=== PATIENT | male | born 1965 | race Caucasian/White ===

== ENCOUNTER 2025-03-17 23:44 | Inpatient (IN) | payer BC, SELFPAY ==
[2025-03-17 18:58] VITALS: BMI 33.6
[2025-03-17 19:00] VITALS: BP 133/72
--- NOTE | 2025-03-17 20:52 | ED.GENMED ---
History of Present Illness
<Maximo Lucas MD, Resident - Last Filed: 03/17/25 22:50>
General
Chief Complaint: Swelling
Source: patient
Time Seen by Provider: 03/17/25 20:26
History of Present Illness
History of Present Illness:
Patient is a 60-year-old male who presents to the emergency department with bilateral lower extremity swelling with shortness of breath. he has a past medical history of CKD stage IV, hyperlipidemia, type 2 diabetes mellitus, and hypertension.
He started to notice that he was short of breath approximately 2 months ago while walking on flat ground. He states that he would get short of breath walking approximately 200 m. During these episodes of exacerbation the patient would feel
fatigue and would get sweaty. He did not have any chest pain and he did not notice any irregular heartbeats. 1 month ago he started to notice that his lower extremities were beginning to swell. Unfortunately on Tuesday of this week. That the
patient became concerned and he called his durability engineer Dr. Edgar. Dr. Edgar recommended that the patient increase his 20 mg of Lasix to 40 mg. The patient was instructed that if his symptoms did not improve by the end of the weekend he should
come to the emergency department for further evaluation. Unfortunately, his leg swelling persisted and his shortness of breath did not improve prompting him to present to the emergency department for further evaluation.
Past History
<Maximo Lucas MD, Resident - Last Filed: 03/17/25 22:50>
Past History
ED Past Medical History: HTN, Hypercholesterolemia, NIDDM and Other (Recent stroke in July 2020)
ED Past Surgical History: None
Social History
Tobacco: Non-smoker
Alcohol: None
Drug: None
Personal:
Living: with family
Employment: Not employed
Family History
Family History: Other (Noncontributory)
Review of Systems
<Maximo Lucas MD, Resident - Last Filed: 03/17/25 22:50>
Review of Systems
Constitutional: Reports fatigue and other ( Sweats)
EENT: Reports no symptoms
Respiratory: Reports trouble breathing ( shortness of breath on mild activity)
ABD/GI: Reports no symptoms
: Reports no symptoms
Musculoskeletal: Reports edema ( 2+ to 3+ bilateral lower extremity edema)
Skin: Reports no symptoms
Neurological: Reports no symptoms
Endocrine: Reports no symptoms
Hematologic/Lymphatic: Reports no symptoms
Psychiatric: Reports no symptoms
Phy Exam
<Maximo Lucas MD, Resident - Last Filed: 03/17/25 22:50>
General Physical Exam
General Presentation: well appearing and no apparent distress
General age: appears stated age
General Skin: warm and dry
General Habitus: normal
General Mental: alert
General Hydration: appears well hydrated
Cardiovascular Exam
Cardiovascular Exam: regular rate/rhythm, no edema ( 2+ to 3+ bilateral lower extremity edema), no gallop, no JVD, no murmur and normal peripheral pulses
Pulmonary Exam
Pulmonary Exam: lungs clear, no respiratory distress, no rales, chest non tender, no crackles, no rhonchi, no stridor, no wheezing and no cough
Musculoskeletal Exam
Musculoskeletal Exam: full ROM
Skin Exam
Skin Exam: normal color and warm/dry
Psychiatric Exam
Psychiatric Exam: normal mood/affect
Scores
<Maximo Lucas MD, Resident - Last Filed: 03/17/25 22:50>
Heart Failure Risk
Heart Failure Risk Score: Yes
History of Stroke or TIA: No
History of intubation for respiratory distress: No
Heart rate on ED arrival >/= 110: No
SaO2 <90% on arrival on room air: No
HR >/=110 during 3min walk test (or too ill to perform test): No
ECG has acute ischemic changes: No
Urea >/=12mmol/L (BUN 33.6mg/dL): Yes
Serum CO2>/=35mmol/L: No
Troponin I or T elevated to CT Level (0.4mg/dL): No
NT-proBNP >/=5,000ng/L (5,000pg/ml): No
HF Risk Score: 1
Admission Status: MEDIUM RISK 5.1% Consider observation or discharge to home with homecare & f/u visit to PCP/Community Recreation Programmer, or SNF for treatment
Course
<Maximo Lucas MD, Resident - Last Filed: 03/17/25 22:50>
Orders/Labs/Results
Orders:
Orders
03/17/25 20:46
Electrocardiogram (*1) Urgent
Reason for Study: Shortness of Breath
EKG- Treatment ONCE
03/17/25 20:49
Cardiac Monitoring- Treatment ONCE
03/17/25 20:52
CR Chest - 2 Views Urgent
Comment:
Reason For Exam: Shortness of breath
03/17/25 21:17
Complete Blood Count/No Diff Urgent
Comprehensive Metabolic Panel Urgent
Free T4 Urgent
NT-proBNP Urgent
TSH Reflex To Free T4 Urgent
Troponin I Urgent
03/17/25 22:30
Furosemide [Lasix] 40 mg IV NOW STA
Nitroglycerin Ointment [Nitro-Bid] 1 inch TOPICAL NOW STA
Abnormal Lab Results
03/17/25
21:17
RBC 2.83 L 10^6/uL
(4.70-6.10)
Hgb 8.0 L g/dL
(13.0-18.0)
Hct 24.9 L %
(39.0-52.0)
MCHC 32.1 L g/dL
(33.0-37.0)
MPV 11.0 H fL
(7.4-10.4)
Chloride 110 H mmol/L
(98-107)
BUN 38 H mg/dl
(9-20)
Creatinine 3.1 H mg/dL
(0.7-1.3)
Glucose 127 H mg/dl
(70-99)
ALT 72 H U/L
(0-50)
TSH (Reflex) 5.54 H uIU/ml
(0.47-4.68)
03/17/25 21:17
03/17/25 21:17
Vital Signs
Initial and Last Documented VS:
Initial Vital Signs
Temp Pulse Resp BP Pulse Ox
97.9 F 75 20 133/72 93
03/17/25 19:00 03/17/25 19:00 03/17/25 19:00 03/17/25 19:00 03/17/25 19:00
Last Documented Vital Signs
Temp Pulse Resp BP Pulse Ox
97.9 F 68 17 162/79 92
03/17/25 19:00 03/17/25 22:15 03/17/25 22:15 03/17/25 22:00 03/17/25 22:15
[place];Mariano Diop, DO - Last Filed: 03/17/25 22:36>
Orders/Labs/Results
Orders:
Orders
03/17/25 20:46
Electrocardiogram (*1) Urgent
Reason for Study: Shortness of Breath
EKG- Treatment ONCE
03/17/25 20:49
Cardiac Monitoring- Treatment ONCE
03/17/25 20:52
CR Chest - 2 Views Urgent
Comment:
Reason For Exam: Shortness of breath
03/17/25 21:17
Complete Blood Count/No Diff Urgent
Comprehensive Metabolic Panel Urgent
Free T4 Urgent
NT-proBNP Urgent
TSH Reflex To Free T4 Urgent
Troponin I Urgent
03/17/25 22:30
Furosemide [Lasix] 40 mg IV NOW STA
Nitroglycerin Ointment [Nitro-Bid] 1 inch TOPICAL NOW STA
Abnormal Lab Results
03/17/25
21:17
RBC 2.83 L 10^6/uL
(4.70-6.10)
Hgb 8.0 L g/dL
(13.0-18.0)
Hct 24.9 L %
(39.0-52.0)
MCHC 32.1 L g/dL
(33.0-37.0)
MPV 11.0 H fL
(7.4-10.4)
Chloride 110 H mmol/L
(98-107)
BUN 38 H mg/dl
(9-20)
Creatinine 3.1 H mg/dL
(0.7-1.3)
Glucose 127 H mg/dl
(70-99)
ALT 72 H U/L
(0-50)
TSH (Reflex) 5.54 H uIU/ml
(0.47-4.68)
03/17/25 21:17
03/17/25 21:17
Vital Signs
Initial and Last Documented VS:
Initial Vital Signs
Temp Pulse Resp BP Pulse Ox
97.9 F 75 20 133/72 93
03/17/25 19:00 03/17/25 19:00 03/17/25 19:00 03/17/25 19:00 03/17/25 19:00
Last Documented Vital Signs
Temp Pulse Resp BP Pulse Ox
97.9 F 68 17 162/79 92
03/17/25 19:00 03/17/25 22:15 03/17/25 22:15 03/17/25 22:00 03/17/25 22:15
<Maximo Lucas MD, Resident - Last Filed: 03/17/25 22:50>
*Pulse Oximetry
SaO2: 93
Oxygen Mode of Delivery: Room air
Patient hypoxic: no
*Critical Care Note
Total Time (30-74mins, 75-104mins- exclusive of procedures): 60
<Maximo Lucas MD, Resident - Last Filed: 03/17/25 22:50>
Update Note
Update Note:
Problem List:
Bilateral lower extremity edema
shortness of breath
diaphoresis
CKD stage IV
Plan:
EKG ordered
CBC and CMP ordered
proBNP ordered
troponins ordered
TSH with reflex to T4
chest x-ray
Differential Diagnoses:
CHF exacerbation
Pulmonary edema secondary to CHF exacerbation
cardiac arrhythmia
pneumonia
pulmonary embolism
Radiology:
- chest x-ray ordered on 03/17/2025: Mild cardiomegaly. Cannot exclude tiny bilateral pleural effusions.
EKG: normal sinus rhythm, right bundle branch block, septal infarct, age undetermined
Labs:
patient is a hemoglobin of 8.0 likely secondary to CKD stage IV. based on lab work in the outpatient setting has been trending downwards over the past few months
BMP with an elevated creatinine of 3.1, BUN of 38, eGFR of 22.17
troponins within normal limits
proBNP 4770
TSH 5.54
Updates:
Patient presents with obvious signs of acute CHF exacerbation. He has bilateral pedal edema 2+ to 3+.
proBNP is 4770. patient given Nitropaste and 40 mg of IV Lasix
patient to be admitted for acute CHF exacerbation.
ED Attending Note
<Maximo Lucas MD, Resident - Last Filed: 03/17/25 22:50>
-
Portions of this chart may have been created with voice recognition software.� Occasional wrong word or��sound alike� substitutions may have occurred due to the inherent limitations of voice recognition software.
<Mariano Diop, DO - Last Filed: 03/17/25 22:36>
ED Attending Note
Patient seen and examined by attending physician: Yes
I performed a history and physical exam of patient and discussed management with resident, I reviewed resident's note and agree with documented findings and plan of care.: Yes
ED Attending Note:
I have reviewed and agree with history treatment plan by Maximo Lucas MD.
Note:
CHIEF COMPLAINT(S)
Swelling and difficulty breathing.
HISTORY OF PRESENT ILLNESS
The patient is a 60-year-old male presenting with swelling and difficulty breathing for several days. The patient reports that the swelling in his legs has been increasing over several days to weeks, with significant worsening in the last few days.
The patient denies any recent dietary changes. An X-ray was performed, showing signs of pulmonary edema, prompting concerns for congestive heart failure. The patient notes the swelling in his legs is more pronounced than usual, whereas 30 days
prior, there was no swelling at all.
ADDITIONAL HISTORY OBTAINED FROM SOURCES OTHER THAN THE PATIENT
Per the patients daughter, there have been no significant changes in diet or lifestyle recently that could explain the sudden exacerbation of symptoms.
REVIEW OF SYSTEMS
- Cardiovascular: Swelling in the legs.
- Respiratory: Difficulty breathing, signs of fluid in the lungs.
PHYSICAL EXAM
General: Alert, no acute distress.
Skin: Warm, dry.
Head: Normocephalic, atraumatic.
Neck: Supple, trachea midline.
Eye Ears, nose, mouth and throat: Oral mucosa moist.
Cardiovascular: Normal peripheral perfusion, No edema.
Respiratory: Respirations are non-labored.
Gastrointestinal: Abdomen nondistended
Back: Normal range of motion, Normal alignment.
Musculoskeletal: Normal ROM, normal strength. edema bilateral
Neurological: Alert and oriented to person, place, time, and situation, No focal neurological deficit observed.
Psychiatric: Cooperative, appropriate mood & affect.
PLAN
Arrange for the patient to see a diagnostic technician for further evaluation of suspected congestive heart failure.
DIFFERENTIAL DIAGNOSIS
The Differential Diagnosis includes, in no particular order and is not limited to:
1. Congestive Heart Failure
2. Pulmonary Edema
3. Deep Vein Thrombosis
4. Chronic Kidney Disease
5. Chronic Obstructive Pulmonary Disease
6. Acute Respiratory Distress Syndrome
7. Pulmonary Hypertension
8. Sleep Apnea
9. Hypoalbuminemia
10. Venous Insufficiency
CARE-UPDATE
03/17/25 - 22:33
The patient, a [id number]-old male, is experiencing an exacerbation of chronic obstructive lung disorder (CHO). The treatment plan includes the administration of a bronchodilator, application of lacerine paste, and a dosage of 40 milligrams of
LASI-P. The decision has been made to admit the patient to the hospitalists for further management and monitoring.
Disposition:
SUMMARY OF ENCOUNTER
The patient, a 60-year-old male, was seen in the emergency department presenting with swelling and difficulty breathing. Upon evaluation, it was determined that the patient is experiencing an exacerbation of congestive heart failure (CHF) and has
underlying chronic kidney disease. Due to the seriousness of his condition, admission to the hospital for appropriate treatment and management was deemed necessary.
DISPOSITION
Admit.
ASSESSMENT
Exacerbation of congestive heart failure with underlying chronic kidney disease.
PLAN
The patient will be admitted to the hospital for further management and treatment of his congestive heart failure exacerbation and monitoring of chronic kidney disease.
MEDICATION RECONCILIATION
Administered medications include a bronchodilator and furosemide (Lasix).
MEDICAL DECISION MAKING
-Chronic conditions affecting care: Congestive heart failure, chronic kidney disease.
-Complexity of Data Reviewed:
DDx list includes:
1. Congestive Heart Failure
2. Pulmonary Edema
3. Deep Vein Thrombosis
4. Chronic Kidney Disease
5. Chronic Obstructive Pulmonary Disease
6. Acute Respiratory Distress Syndrome
7. Pulmonary Hypertension
8. Sleep Apnea
9. Hypoalbuminemia
10. Venous Insufficiency.
Category 2
Clinical information was obtained from an independent historian: The patients daughter confirmed no significant diet or lifestyle changes preceding the exacerbation of symptoms.
Category 3
Discussion of management with other physician: Management and hospital admission were discussed with the hospitalist team for comprehensive treatment.
DIAGNOSIS
1. Congestive Heart Failure Exacerbation - ICD-10: I50.9
2. Chronic Kidney Disease - ICD-10: N18.9
3 Anemia
Discharge Plan
Departure
Patient Disposition: Admit
Date of Disposition: 03/17/25
Time of Disposition: 22:35
Admit to: Telemetry
Presentation/result/management discussed w/ accepting MD/DO: Hospitalist
Condition: Good
Discharge Problem:
Acute exacerbation of CHF (congestive heart failure), Anemia, CKD (chronic kidney disease)
Prescriptions:
No Action
multivitamin with folic acid [Tab-A-Jazz] 1 TABLET tablet
1 tab PO DAILY
Patient Comments:
UNKNOWN IF PT TOOK THIS MED THIS AM
atorvastatin 80 MG tablet
80 mg PO QPM Qty: 30 0RF
Rx Instructions:
NEW MED
aspirin 81 MG tablet,chewable
81 mg PO DAILY Qty: 1 0RF
insulin regular human [Novolin R FlexPen] 300 UNITS/3 ML insulin pen
6 units SC DAILY@1700 0RF
insulin regular human [Novolin R FlexPen] 300 UNITS/3 ML insulin pen
8 units SC DAILY@0730,1130 0RF
furosemide 20 MG tablet
20 mg PO DAILY
lisinopril 10 MG tablet
10 mg PO BID 0RF
insulin NPH isoph U-100 human [Humulin N NPH Insulin KwikPen] 300 UNITS/3 ML insulin pen
18 units SC BID@0800,1700 0RF
labetalol 200 MG tablet
300 mg PO BID Qty: 100 2RF
Referrals:
Forrest Kovacs MD [Family Provider, Family Practice]
Interventions
Interventions:
*Risk Screen - Suicide Last Done: 03/17/25 19:01
*General Assessment Last Done: 03/17/25 19:01
*Neglect/Abuse Screening Last Done: 03/17/25 21:19
*ED- Fall Risk Assessment Last Done: 03/17/25 21:19
ED- Cardiac Assessment Last Done: 03/17/25 21:19
ED- Pulmonary Assessment Last Done: 03/17/25 21:19
ED-Skin Assessment Last Done: 03/17/25 21:19
Discharge Date and Time
Print Language: POLISH
[2025-03-17 21:18] VITALS: BP 161/83
[2025-03-17 21:32] LABS: Hematocrit 24.9 % (39.0-52.0); Hemoglobin 8.0 g/dL (13.0-18.0); Mean Corp Hgb Conc. 32.1 g/dL (33.0-37.0); Mean Corpuscular Volume 88.0 fL (80.0-94.0); Platelet Count 168 10^3/uL (130-400); Red Cell Dist. Width 12.9 % (11.5-14.5)
[2025-03-17 22:00] VITALS: BP 162/79
[2025-03-17 22:02] LABS: ALT (SGPT) 72 U/L (0-50); AST (SGOT) 30 U/L (17-59); Albumin 4.0 g/dl (3.5-5.0); Alkaline Phosphatase 104 U/L (38-126); Blood Urea Nitrogen 38 mg/dl (9-20); Calcium 8.6 mg/dl (8.4-10.2); Carbon Dioxide 26 mmol/L (22-30); Chloride 110 mmol/L (98-107); Estimated Creatinine Clearance 29 ml/min; Glucose 127 mg/dl (70-99); Potassium 5.1 mmol/L (3.5-5.1); Sodium 143 mmol/L (135-145); Total Protein 6.3 g/dl (6.3-8.2); eGFR 22.17
[2025-03-17 22:07] LABS: Troponin I < 0.012 ng/ml
[2025-03-17] MEDS: LASIX 40 MG IV (22:35)
[2025-03-17] MEDS: NITRO-BID 1 INCH TOPICAL (22:36)
[2025-03-17 22:42] VITALS: BP 153/74
--- NOTE | 2025-03-17 22:52 | HPS.HSE ---
Addendum entered and electronically signed by Benjie Eugene DO 03/18/25 00:12:
Patient seen and examined independently. Agree with findings and plan as set forth by CECILIA Wu.
Patient is a 60y M with PMH significant for hypertension, DM-II and CKD who presents to ED complaining of progressive LE swelling and dyspnea with exertion over the past several months / 1 year - much worse in the past 2 months. Patient states
that he spoke with his [employer] Operator and increased his Lasix dosing for the past 3-4 days. He did not appreciate any change in urination, edema or improvement in dyspnea. Patient presented to [facility] ED for further evaluation and treatment.
No prior history of CAD, CHF, etc. Prior suspected CVA s/p tPA. Developed contrast-induced nephropathy in 2021 requiring temporary HD at that time.
Ass:
Edema / Anasarca
CKD IV
Acute on Chronic Normocytic Anemia
Multidrug Resistant Hypertension
ASCVD / Prior CVA
DM-II with Nephropathy / Retinopathy
Obesity due to excess calories
Plan:
Admit for further evaluation and treatment.
IV Lasix and follow for adequate diuresis.
Check Echo - Cardiology consult if any significant abnormality.
Nephrology consult for volume management / CKD.
Check iron studies / anemia work-up.
Hold lisinopril acutely - continue other antihypertensive medications.
Continue basal : bolus insulin and cover with SSI if needed.
Original Note:
Family Physician
-
Family Physician: Forrest Kovacs
Chief Complaint
-
Shortness of breath, orthopnea, PERRY
History of Present Illness
60-year-old male complaining of bilateral lower extremity swelling with shortness of breath that he noticed approximately 1 year ago however has gotten worse over the past 2 months with minimal activity. he reports he will get short of breath while
walking approximately 200 m and would feel fatigued and diaphoretic however did not notice any chest pain or palpitations. He reports 1 month ago he developed swelling in his bilateral lower legs was seen by nephro his Lasix was increased from 20
mg to 40 mg. His symptoms did not improve over the weekend he was advised to come to ER for evaluation. He denies fever, chills, chest pain, palpitations, cough, abdominal pain, nausea, vomiting, diarrhea, urinary symptoms. He has past medical
history of CKD stage IV, diabetic nephropathy, contrast nephropathy requiring temporary dialysis July 2021, hypertension multidrug-resistant, DM 2 with diabetic nephropathy/diabetic neuropathy, HLD, TIA symptoms right-sided weakness/aphasia did
receive tPA July 2020 with negative MRIs, class I obesity.
Medical History
Past Medical History
Past Medical History: Reports Other
Additional Past Medical History:
CKD stage IV
diabetic nephropathy
contrast nephropathy requiring temporary dialysis July 2021
hypertension multidrug-resistant
DM 2 with diabetic nephropathy/diabetic neuropathy
HLD
TIA symptoms right-sided weakness/aphasia did receive tPA July 2020 with negative MRIs thought to be hypertensive encephalopathy or migraine aura
Class I obesity
Past Surgical History: Reports Other
Additional Past Surgical History:
[place] teeth extraction
Social History
Tobacco: Non-smoker
Alcohol: Occasional (Drinks 2 beers on the weekend)
Living: With Family
Employment: Retired
Family History
Family History: Not pertinent
Allergies / Home Medications
Allergies reflects when Allergies were last updated in [facility].
Home Medications with original date entered in [facility]
Allergy/Medication List:
Allergies
Allergy/AdvReac Type Severity Reaction Status Date / Time
Iodinated Contrast Media Allergy Unknown Verified 03/17/25 19:01
Home Medications
multivitamin with folic acid 400 mcg tablet (Tab-A-Jazz) 1 tab PO DAILY Supplement 06/18/21
aspirin 81 mg chewable tablet 81 mg PO DAILY #1 tab 06/21/21
atorvastatin 80 mg tablet 80 mg PO QPM #30 tabs 06/21/21
furosemide 20 mg tablet 20 mg PO DAILY Fluid retention/Swelling 11/13/21
insulin NPH isoph U-100 human 100 unit/mL (3 mL) subcutaneous pen (Humulin N NPH U-100 Insulin KwikPen) 18 units SC BID@0800,1700 11/16/21
labetalol 200 mg tablet 300 mg (1.5 x 200 mg) PO BID #100 tabs 11/16/21
lisinopril 10 mg tablet 10 mg PO BID 11/16/21
Lantus Solostar U-100 Insulin 20 units SC HS 03/17/25
Skyrizi 150 mg SC DIRECTED 03/17/25
insulin regular human 100 unit/mL (3 mL) subcutaneous pen (Novolin R FlexPen) 6 units SC DAILY@1200 03/17/25
insulin regular human 100 unit/mL (3 mL) subcutaneous pen (Novolin R FlexPen) 12 units SC DAILY@0730,2100 03/17/25
minoxidil 2.5 mg tablet 2.5 mg PO BID 03/17/25
sodium bicarbonate 650 mg PO BID 03/17/25
Review of Systems
-
History Source: Patient and Family (Daughters at bedside)
A 12 point ROS was completed and negative except as noted: Yes
Constitutional: Reports Fatigue; Denies Chills
EENT: Denies Sore Throat or Runny Nose
Respiratory: Reports Trouble Breathing and Other (PERRY, orthopnea); Denies Cough
Cardiac: Denies Chest Pain, Diaphoresis, Palpitations or Syncope
Abdomen/GI: Denies Abdominal Pain, Nausea, Vomiting, Diarrhea, Constipated, Bloody Stools or Black Stools
: Denies Dysuria, Frequency, Flank Pain, Incontinence, Difficulty Voiding or Urgency
Musculoskeletal: Reports Edema (+2 edema above knees); Denies Joint Pain
Skin: Denies Itching or Rash
Neurological: Denies Dizzy or Headache
Endocrine: Reports No Symptoms
Hematologic/Lymphatic: Reports No Symptoms
Psych: Reports Calm
Physical Exam
Vital Signs
Vital Signs
Temp Pulse Resp BP Pulse Ox
97.9 F 70 14 153/74 96
03/17/25 19:00 03/17/25 22:42 03/17/25 22:42 03/17/25 22:42 03/17/25 22:42
Physical Exam
General: Comfortable, Conversant and Obese; No Pain, Fever or Chills
HEENT: NormoCephalic, Anicteric, Moist mucous membranes, PERRLA, [place] Conjunctivae and No Ptosis
Respiratory: Clear; No Wheezes, Rales or Rhonchi
Cardiac: S1/S2, Regular Rhythm and Peripheral Edema (+2 lower legs to just above knees); No Murmur, Rub or Gallop
Breast: Deferred by me
GI: Soft, Non Tender, Non Distended, Normal Bowel Sounds and No Hepatosplenomegaly
Rectal: Deferred by Provider
Genito-urinary: Deferred by me
Musculoskeletal: No Clubbing, No Cyanosis, Edema, Left Lower Extremity (+2 lower leg to just above knees) and Edema, Right Lower Extremity (+2 lower leg to just above knees); No Edema, Left Upper Extremity or Edema, Right Upper Extremity
Skin: Warm and Dry; No Rash
Neuro: AO x 3, No Motor Deficits, Nonfocal/grossly intact, Cranial Nerves Intact and No Sensory Deficits; No Slurred Speech, Facial Droop, Tremors or Sedated
Psych: Calm
Laboratory Results
-
03/17/25 21:17
03/17/25 21:17
Laboratory Results
Total Bilirubin 0.3 mg/dl (0.2-1.3) 03/17/25 21:17
AST 30 U/L (17-59) 03/17/25 21:17
ALT 72 U/L (0-50) H 03/17/25 21:17
Alkaline Phosphatase 104 U/L (38-126) 03/17/25 21:17
Troponin I < 0.012 ng/ml 09/07/25 21:17
Data Reviewed
-
Diagnostic Radiology: Report Reviewed by me
Lab Data: Labs Reviewed by me
Impression/Plan
-
Impression/plan:
Admit to telemetry
#Acute CHF
BNP 4770
-I/O, daily weight
-Check 2D echo
-Consult CBC cardiology
-IV Lasix 40 mg daily
CXR: Mild cardiomegaly cannot exclude tiny bilateral pleural effusions
2D echo 07/21/2020: EF 55%, normal LVS LVSF, normal RVSF
#Acute on chronic anemia�normocytic
Hgb 8 was 10.6 in November 2021 prior baseline 12.2
Check iron panel, B12, folate
#CKD stage IV
#Proteinuria due to diabetic nephropathy
#History of contrast nephropathy required temporary dialysis July 2021 (peak creat 7.17 July 2021)
Creatinine 3.1 creat reports recently 2.8�2.9 but was 3 as of January with GFR of 21 per patient
- Continue sodium bicarb 650 mg twice daily
- Hold lisinopril 10 mg twice daily
#HTN multidrug resistant
BP 162/78
-Continue labetalol 300 mg twice daily
#CVA per patient had symptoms of right-sided weakness and aphasia was status post tPA July 2020-thought to be hypertensive encephalopathy or migraine aura
#July 2020 presented with right-sided weakness and aphasia received alteplase had negative MRI at that time which was negative for CVA
#MRI 07/21/2020 no acute intracranial abnormality
#DM 2 with diabetic nephropathy/diabetic neuropathy
Check HgbA1c
Patient reports last A1c was around 11
Patient takes Lantus 20 units at bedtime, NPH 18 units at 6 AM, 1800
Patient takes Novolin are 12 units with breakfast, 12 units at bedtime and 8 units at 1300
DVT prophylaxis
sq heparin
Full code
[2025-03-17 23:00] VITALS: BP 162/78
[2025-03-17 23:27] LABS: Iron 47 ug/dl (49-181)
[2025-03-17 23:35] LABS: Total Iron Binding Capacity 338 ug/dl (261-462)
[2025-03-17 23:49] LABS: Ferritin 32.9 ng/ml (17.9-464.0)
[2025-03-17 23:57] LABS: Urine Character Clear (Clear)
[2025-03-18] VITALS (7 sets, daily range): BP systolic 129–160; BP diastolic 67–88; PULSE 75; O2SAT 96; BMI 32.5
[2025-03-18 00:05] LABS: Urine Squamous Cell 0-2 /LPF (Few)
[2025-03-18 00:06] LABS: Urine Red Blood Cell 0-2 /HPF (0-2); Urine White Cell 0-2 /HPF (0-5)
[2025-03-18 00:21] LABS: Folate 17.0 ng/ml (2.76-20); Vitamin B12 621 pg/ml (239-931)
--- NOTE | 2025-03-18 01:54 | PTCARENOTE ---
ax3 afebrile room air- lungs diminished at bases- ble plus 2 pitting- sinus bp wnl- chf packet given. pt asked to use urinal for i/o
[2025-03-18 07:05] LABS: Glucose - Point of Care 72 mg/dl (70-99)
[2025-03-18 07:10] LABS: Hematocrit 23.7 % (39.0-52.0); Hemoglobin 7.6 g/dL (13.0-18.0); Mean Corp Hgb Conc. 32.1 g/dL (33.0-37.0); Mean Corpuscular Volume 88.4 fL (80.0-94.0); Nucleated Red Blood Cells % 0 % (-); Platelet Count 161 10^3/uL (130-400); Red Cell Dist. Width 13.0 % (11.5-14.5)
[2025-03-18 07:47] LABS: ALT (SGPT) 65 U/L (0-50); AST (SGOT) 25 U/L (17-59); Albumin 3.6 g/dl (3.5-5.0); Alkaline Phosphatase 104 U/L (38-126); Blood Urea Nitrogen 39 mg/dl (9-20); Calcium 8.5 mg/dl (8.4-10.2); Carbon Dioxide 26 mmol/L (22-30); Chloride 111 mmol/L (98-107); Estimated Creatinine Clearance 29 ml/min; Glucose 59 mg/dl (70-99); Potassium 5.1 mmol/L (3.5-5.1); Sodium 141 mmol/L (135-145); Total Protein 5.8 g/dl (6.3-8.2); eGFR 22.17
[2025-03-18] MEDS: NOVOLOG FLEXPEN-MODERATE RESISTANCE SC (08:12)
[2025-03-18] MEDS: TRANDATE 300 MG PO ×2 (08:14→20:01)
[2025-03-18] MEDS: LASIX 40 MG IV ×2 (08:14→15:59)
[2025-03-18] MEDS: LOW STRENGTH ASPIRIN 81 MG PO (08:14)
[2025-03-18] MEDS: SODIUM BICARBONATE 650 MG PO ×2 (08:14→20:07)
[2025-03-18] MEDS: HEPARIN 5000 UNITS SC ×2 (08:14→20:01)
[2025-03-18 10:39] LABS: Glycohemoglobin (HgbA1c) 8.1 % (4.0-5.6)
--- NOTE | 2025-03-18 11:42 | CM ---
Patient seen bedside w/ family, initial assessment completed. Patient is a 60y M with PMH significant for hypertension, DM-II and CKD who presents to ED complaining of progressive LE swelling and dyspnea with exertion.
Patient resides w/ spouse in a 3 sty split level home, 1 step to enter. 6 steps between levels. Patient is independent in all areas. Patient works. No therapy hx.
Address, point of contact and insurance verified
PCP: Forrest Kovacs
Pharmacy: [facility]
PT assessed, rec OP therapy at d/c, will need script. Patient agreeable
Plan: Home w/ OP therapy
[2025-03-18 12:14] LABS: Glucose - Point of Care 183 mg/dl (70-99)
[2025-03-18] MEDS: NOVOLOG FLEXPEN-MODERATE RESISTANCE 1 UNITS SC ×2 (12:49→16:53)
--- NOTE | 2025-03-18 13:21 | W.PN.HOSP.TC ---
Today's Communication/Plan
-
Monitor vitals
See plan
Cardiology nephrology evaluation
Monitor renal function
Continue with IV diuresis
Check venous Doppler lower extremity
Monitor hemoglobin
Continue insulin
Assessment / Plan
Assessment / Plan
General: Comfortable, Conversant and Obese; No Pain, Fever or Chills
HEENT: NormoCephalic, Anicteric, Moist mucous membranes, PERRLA
Respiratory: Clear; No Wheezes, Rales or Rhonchi
Cardiac: S1/S2, Regular Rhythm and Peripheral Edema (+2 lower legs to just above knees)
GI: Soft, Non Tender, Non Distended, Normal Bowel Sounds
Musculoskeletal: Edema, Left Lower Extremity (+2 lower leg to just above knees) and Edema, Right Lower Extremity (+2 lower leg to just above knees)
Neuro: AO x 3, No Motor Deficits, Nonfocal/grossly intact
Psych: Calm
Acute CHF with preserved EF
BNP 4770
-I/O, daily weight
Echo with stage III diastolic dysfunction, elevated pulmonary arterial pressure. Will benefit from sleep study outpatient
Consult cardiology
Continue with IV Lasix
Nephrology evaluation, follows up with Dr. Edgar outpatient
CXR: Mild cardiomegaly cannot exclude tiny bilateral pleural effusions
Check venous Doppler
#Acute on chronic anemia�normocytic
Monitor hemoglobin
#CKD stage IV
#Proteinuria due to diabetic nephropathy
#History of contrast nephropathy required temporary dialysis July 2021 (peak creat 7.17 July 2021)
Creatinine 3.1 creat reports recently 2.8�2.9 but was 3 as of January with GFR of 21 per patient
- Continue sodium bicarb 650 mg twice daily
- Hold lisinopril 10 mg twice daily
Nephrology evaluation
#HTN multidrug resistant
-Continue labetalol 300 mg twice daily
#CVA per patient had symptoms of right-sided weakness and aphasia was status post tPA July 2020-thought to be hypertensive encephalopathy or migraine aura
#July 2020 presented with right-sided weakness and aphasia received alteplase had negative MRI at that time which was negative for CVA
#MRI 07/21/2020 no acute intracranial abnormality
#DM 2 with diabetic nephropathy/diabetic neuropathy
HgbA1c 8.1
Patient reports last A1c was around 11
Patient takes Lantus 20 units at bedtime, NPH 18 units at 6 AM, 1800
Patient takes Novolin are 12 units with breakfast, 12 units at bedtime and 8 units at 1300
monitor with lantus and sliding scale
Elevated TSH however normal free T4
Continue to monitor
DVT prophylaxis
sq heparin
Full code
I spent a total of 52 minutes with the patient or on the floor. More than 50% of this time involved counseling and coordination of care.
Anticipated Discharge: > 48 hours
Subjective/Interval History
-
Date of Service: March 18, 2025
has some sob
Objective Data
-
Labs:
Laboratory Results
03/18/25
06:35
WBC 6.7
Hgb 7.6 L
Hct 23.7 L
Plt Count 161
Sodium 141
Potassium 5.1
Chloride 111 H
Carbon Dioxide 26
BUN 39 H
Creatinine 3.1 H
Glucose 59 L
Calcium 8.5
Total Bilirubin 0.3
AST 25
ALT 65 H
Alkaline Phosphatase 104
Vital Signs:
Vital Signs
Temp Pulse Resp BP Pulse Ox
97.6 F 76 17 152/75 96
03/18/25 11:05 03/18/25 11:05 03/18/25 11:05 03/18/25 11:05 03/18/25 11:05
I&O
03/17/25 03/18/25 03/19/25
06:59 06:59 06:59
Output Total 1200 / 1200
Balance -1200 / -1200
--- NOTE | 2025-03-18 14:01 | CON.CAR ---
Addendum entered and electronically signed by Leonidas Bobo MD 03/18/25 17:32:
I saw and examined the patient.
DR Araujo''s note was reviewed and I agree with the note.
I provided the substantive portion of the medical decision making and it accurately reflects our care.
I personally performed the medical decision making of the this encounter and my assessment and plan is below:
- IV diuresis
- work up for amyloid
- recommend sglt2i, however, had been stopped previously
Original Note:
Consultation
Consultation Request
Date/Time Consultation Requested: 03/18/2025, 1323
Date/Time Consultation Performed: 03/18/2025, 14 00
Requesting Provider: Dr. Jackson
Performing Provider: Dr. Bobo, Dr. Araujo
Reason for Consultation: Acute exacerbation of HFpEF
Medical History
-
Chief Complaint: Lower extremity swelling, dyspnea on exertion
History of Present Illness:
60-year-old male with Multidrug-resistant hypertension, hyperlipidemia, DM 2, CKD stage IV, HFpEF, history of CVA status post tPA, contrast-induced nephropathy in 2021 requiring temporary HD, presents to the ER reporting lower extremity swelling and
dyspnea on exertion. Patient states that these have been ongoing since the past 2 months, have worsened over time in the past 2 weeks. He reached out to his supervisor computer operations Dr. Zarate, was advised to increase his dose of Lasix from 20 mg to 40 mg,
took it for 3 days without much improvement. Patient does not report any chest pain, palpitations, lightheadedness.
Patient does not have a powerhouse mechanic. His hypertension is being managed by his supervisor computer operations Dr. Edgar, last visit on 03/01/2025. He also has history of chronic anemia due to his CKD. He was advised to see [facility] for
erythropoietin/transfusions for his anemia.
In the ER his hemoglobin�8, BUN creatinine�38/3.1, TSH�5.54. He was hemodynamically stable at presentation. Chest x-ray with evidence of mild cardiomegaly and mild bilateral pleural effusions. EKG�NSR, right bundle branch block. BNP�4770,
troponins negative. He was started on IV Lasix 40 mg daily. Cardiology was consulted for management of his HFpEF.
Past Medical History
Past Medical History: CHF, CVA, HTN, Hypercholesterolemia, NIDDM and Other (CKD stage IV, Chronic anemia)
Social History
Tobacco: Non-Smoker
Alcohol: Occasional
Drug: None
Personal:
Living: With Family
Employment: Retired
Allergies / Home Medications
Allergy/AdvReac Type Severity Reaction Status Date / Time
Iodinated Contrast Media Allergy Unknown Verified 03/17/25 19:01
�Medication �Instructions �Recorded �Confirmed �Type
multivitamin with folic acid 400 1 tab PO DAILY Supplement 06/18/21 03/17/25 History
mcg tablet (Tab-A-Jazz)
aspirin 81 mg chewable tablet 81 mg PO DAILY #1 tab 06/21/21 03/17/25 Rx
atorvastatin 80 mg tablet 80 mg PO QPM #30 tabs 06/21/21 03/17/25 Rx
furosemide 20 mg tablet 20 mg PO DAILY Fluid 11/13/21 03/17/25 History
retention/Swelling
insulin NPH isoph U-100 human 100 18 units SC BID@0800,1700 11/16/21 03/17/25 Rx
unit/mL (3 mL) subcutaneous pen
(Humulin N NPH U-100 Insulin
KwikPen)
labetalol 200 mg tablet 300 mg (1.5 x 200 mg) PO BID #100 11/16/21 03/17/25 Rx
tabs
lisinopril 10 mg tablet 10 mg PO BID 11/16/21 03/17/25 Rx
Lantus Solostar U-100 Insulin 20 units SC HS Diabetes 03/17/25 03/17/25 History
Skyrizi 150 mg SC DIRECTED 03/17/25 03/17/25 History
Antipsoriatic Agent
insulin regular human 100 unit/mL 6 units SC DAILY@1200 Diabetes 03/17/25 03/17/25 History
(3 mL) subcutaneous pen (Novolin R
FlexPen)
insulin regular human 100 unit/mL 12 units SC DAILY@0730,2100 03/17/25 03/17/25 History
(3 mL) subcutaneous pen (Novolin R Diabetes
FlexPen)
minoxidil 2.5 mg tablet 2.5 mg PO BID Blood Pressure 03/17/25 03/17/25 History
sodium bicarbonate 650 mg PO BID ALKALINIZER 03/17/25 03/17/25 History
Review of Systems
-
All other systems: Negative unless noted
Physical Exam
Vital Signs
Temp Pulse Resp BP Pulse Ox
97.6 F 76 17 152/75 96
03/18/25 11:05 03/18/25 11:05 03/18/25 11:05 03/18/25 11:05 03/18/25 11:05
Lab Results
03/18/25 06:35
03/18/25 06:35
Troponin I < 0.012 ng/ml 03/17/25 21:17
Wmf-L-Dtkszpbslyw Pept 4770 pg/ml 03/17/25 21:17
Physical Exam
General: Well Developed, Well Nourished, No Apparent Distress and Comfortable (On room air)
HEENT: Normocephalic and Moist Mucous Membranes
Respiratory: Clear
Cardiac: S1/S2, Regular Rhythm and Peripheral Edema (2+ bilateral lower extremities,); Negative JVD
GI: Soft, Non Tender, Non Distended and Normal Bowel Sounds
Skin: Warm and Dry
Neuro: Awake, Alert, Oriented and AO x 3
Impression / Plan
-
Impression
60-year-old male with Multidrug-resistant hypertension, hyperlipidemia, DM 2, CKD stage IV, HFpEF, history of CVA status post tPA, contrast-induced nephropathy in 2021 requiring temporary HD, presents to the ER reporting lower extremity swelling and
dyspnea on exertion.
Plan
#Dyspnea on exertion, lower extremity swelling
Likely secondary to acute exacerbation of HFpEF versus Chronic anemia
Patient appears volume overloaded
BNP elevated at 4770, troponins negative
Echo with stage III diastolic dysfunction, elevated PASP�59, EF�60%
Possible amyloidosis given appearance of LV?
Chest x-ray with evidence of cardiomegaly, small bilateral pleural effusions
Started on IV Lasix 40 mg daily, continue diuresing.
Patient is having good urine output.
Monitor I/os, electrolytes, Weight
Will check SPEP, UPEP for cardiac amyloidosis.
Rest of the workup can be done as outpatient.
#Hypertension
Multidrug-resistant
Patient was on lisinopril, minoxidil, Lasix, labetalol at home.
Lisinopril held at admission due to elevated creatinine, restart pending nephrology evaluation
Continue with labetalol 300 mg
Continue IV Lasix 40
#Chronic anemia
Hb�7.6
Monitor hemoglobin for now
#CKD, DM type II
Please continue management per primary team, nephrology.
--- NOTE | 2025-03-18 14:36 | W.CON.NEPH ---
Addendum entered and electronically signed by Eris Cherry MD 03/18/25 17:01:
I agree with the resident's note with the following addendum.
This is a 60-year-old gentleman who follows with Dr. Edgra in our office. He has CKD 4 baseline creatinine closer to 2.8 though it has been rising recently. He has nephrotic range proteinuria attributed to uncontrolled diabetes and diabetic
nephropathy. He also has hypertension on a multidrug regimen though this is also very poorly controlled. His diabetes is also very poorly controlled despite insulin with his A1c now at 11. He comes in because of worsening lower extremity edema
over time particularly in the last 3 months however the greatest concern for him is the new orthopnea and shortness of breath. On admission he was noted to have a creatinine of 3.1 off his baseline representing acute kidney injury. Echocardiogram
shows new valvular heart disease including severe mitral regurgitation as well as tricuspid digitation. As an outpatient his hydrochlorothiazide was switched to Lasix with little effect and was doubled still with little effect. In the hospital he
was given intravenous Lasix with improved efficacy. He had previously been on dialysis due to contrast nephropathy but recovered enough function.
Patient is awake alert oriented and in no distress. Mood and affect were pleasant, insight and judgment were good. Pupils are equal round and reactive to light, extraocular movements are intact, sclera were anicteric. Hearing was normal, ears and
nose are intact. Oropharynx was clear. Neck was supple with trachea midline and no thyromegaly. Heart was regular rate and rhythm without rubs. Lower extremities with 3+ edema. Lungs were coarse with mild rales to auscultation bilaterally and with
normal excursion. Abdomen was soft, nontender, with normal active bowel sounds, and no hepatosplenomegaly. Skin was without rash and with normal turgor.
Laboratory values were reviewed including past laboratory values as well
Chest x-ray 03/17/2025 by reading shows vascular prominence
EKG on 03/17/2025 by reading shows normal sinus rhythm right bundle branch block septal Q
Echocardiogram 03/18/2025 shows ejection fraction 60, possible amyloid appearance of left ventricle, severe MR, moderate TR
ASSESSMENT:
Hypertension
CKD 4
JAISON
Nephrotic syndrome
Diabetes mellitus type 2 uncontrolled
Decompensated heart failure preserved ejection fraction
Severe MR moderate TR new
Iron-deficiency anemia
PLAN:
Diuresis with IV Lasix
IV iron course
Follow BMP
We discussed his poorly controlled diabetes. He should be on GLP-1 agonist
He was previously on SGLT 2 inhibitors and this should be considered for restart when JAISON has resolved
Holding lisinopril until JAISON resolves
Continue antihypertensive regimen
Nephrotic syndrome is due to poorly controlled diabetes and diabetic nephropathy
Original Note:
Consultation
-
Date/Time Consultation Requested: 03/17/2025 23:55
Date/Time Consultation Performed: 03/18/2025 13:23
Requesting Provider: Ailyn Thayer
Performing Provider: Eris Cherry MD
Reason for Consultation: JAISON
Medical History
-
Chief Complaint: JAISON
History of Present Illness:
This is a 60-year-old male past medical history of hypertension, CKD stage IV, anemia of chronic disease, T2DM who presented to ED 03/17 complaining of progressive lower extremity edema and dyspnea with exertion ongoing for the past year, but
worsening over the past 3 months. The patient reports symptoms have been progressively getting worse. He went to see his peanut cleaner to Dr. Edgar in December 2024 who started patient on Lasix 20 mg due to lower extremity edema. His symptoms
continue to worsen prompting his peanut cleaner to increase his dosage from 20 mg to 40 mg 3 days ago. The patient reports there were no changes noted despite this increase, prompting him to come to the ED for evaluation. At bedside today, he denies
chest pain, denies palpitation.
Pertinent to his history, and July 2021, the patient required temporary dialysis due to contrast nephropathy.
Laboratory today showed creatinine 3.1, BUN 39, eGFR 22.17, proBNP 4770. We are asked evaluate patient from a renal standpoint given his worsening JAISON
Past Medical History
CKD stage IV
diabetic nephropathy
contrast nephropathy requiring temporary dialysis July 2021
hypertension multidrug-resistant
T2DM
Social History
Tobacco: Non-Smoker
Alcohol: Occasional
Living: With Family
Family History
Family History: Not Pertinent
Allergies / Home Medications
Allergy/AdvReac Type Severity Reaction Status Date / Time
Iodinated Contrast Media Allergy Unknown Verified 03/17/25 19:01
�Medication �Instructions �Recorded �Confirmed �Type
multivitamin with folic acid 400 1 tab PO DAILY Supplement 06/18/21 03/17/25 History
mcg tablet (Tab-A-Jazz)
aspirin 81 mg chewable tablet 81 mg PO DAILY #1 tab 06/21/21 03/17/25 Rx
atorvastatin 80 mg tablet 80 mg PO QPM #30 tabs 06/21/21 03/17/25 Rx
furosemide 20 mg tablet 20 mg PO DAILY Fluid 11/13/21 03/17/25 History
retention/Swelling
insulin NPH isoph U-100 human 100 18 units SC BID@0800,1700 11/16/21 03/17/25 Rx
unit/mL (3 mL) subcutaneous pen
(Humulin N NPH U-100 Insulin
KwikPen)
labetalol 200 mg tablet 300 mg (1.5 x 200 mg) PO BID #100 11/16/21 03/17/25 Rx
tabs
lisinopril 10 mg tablet 10 mg PO BID 11/16/21 03/17/25 Rx
Lantus Solostar U-100 Insulin 20 units SC HS Diabetes 03/17/25 03/17/25 History
Skyrizi 150 mg SC DIRECTED 03/17/25 03/17/25 History
Antipsoriatic Agent
insulin regular human 100 unit/mL 6 units SC DAILY@1200 Diabetes 03/17/25 03/17/25 History
(3 mL) subcutaneous pen (Novolin R
FlexPen)
insulin regular human 100 unit/mL 12 units SC DAILY@0730,2100 03/17/25 03/17/25 History
(3 mL) subcutaneous pen (Novolin R Diabetes
FlexPen)
minoxidil 2.5 mg tablet 2.5 mg PO BID Blood Pressure 03/17/25 03/17/25 History
sodium bicarbonate 650 mg PO BID ALKALINIZER 03/17/25 03/17/25 History
Review of Systems
-
All other systems: Negative unless noted (All review of systems obtained and negative except as documented in HPI)
Physical Exam
Vital Signs
Vital Signs
Temp Pulse Resp BP Pulse Ox
97.6 F 76 17 152/75 96
03/18/25 11:05 03/18/25 11:05 03/18/25 11:05 03/18/25 11:05 03/18/25 11:05
Lab Results
WBC 6.7 10^3/uL (4.8-10.8) 03/18/25 06:35
RBC 2.68 10^6/uL (4.70-6.10) L 03/18/25 06:35
Hgb 7.6 g/dL (13.0-18.0) L 03/18/25 06:35
Hct 23.7 % (39.0-52.0) L 03/18/25 06:35
Plt Count 161 10^3/uL (130-400) 03/18/25 06:35
Sodium 141 mmol/L (135-145) 03/18/25 06:35
Potassium 5.1 mmol/L (3.5-5.1) 03/18/25 06:35
Chloride 111 mmol/L (98-107) H 03/18/25 06:35
Carbon Dioxide 26 mmol/L (22-30) 03/18/25 06:35
BUN 39 mg/dl (9-20) H 03/18/25 06:35
Creatinine 3.1 mg/dL (0.7-1.3) H 03/18/25 06:35
eGFR 22.17 03/18/25 06:35
Glucose 59 mg/dl (70-99) L 03/18/25 06:35
Calcium 8.5 mg/dl (8.4-10.2) 03/18/25 06:35
Dul-R-Jijiuxurfuz Pept 4770 pg/ml 03/17/25 21:17
Albumin 3.6 g/dl (3.5-5.0) 03/18/25 06:35
Physical Exam
General: Awake, Alert and AOx3
HEENT: PERRL
Respiratory: Clear
Cardiac: S1/S2
Abdomen: Soft, Nontender, Nondistended and Normal Bowel Sounds
Musculoskeletal: Edema (Bilateral lower extremity)
Assessment/Plan
-
Assessment
JAISON on CKD stage IV
Creatinine rising over the past few months, baseline 1.5
Acute HFpEF
Anemia of chronic disease
Essential hypertension
T2DM with diabetic nephropathy
Diabetic neuropathy
Stage III diastolic dysfunction.
Moderate-Severe MR
Plan
Etiology of JAISON likely cardiorenal syndrome
Consider cardiology consult given echo finding
Check urine studies
Daily weights, I's and O's
Diuresis with IV Lasix 40 mg BID
IV iron replacement
Continue insulin therapy
Daily BMP
[2025-03-18] MEDS: FERRLECIT 110 MG IV (15:54)
[2025-03-18 16:35] LABS: Glucose - Point of Care 165 mg/dl (70-99)
[2025-03-18] MEDS: LIPITOR 80 MG PO (16:52)
[2025-03-18 20:55] LABS: Glucose - Point of Care 204 mg/dl (70-99)
[2025-03-18] MEDS: LANTUS 0.2 UNITS SC (21:36)
[2025-03-19 03:04] VITALS: BP 150/81
[2025-03-19 06:00] VITALS: BMI 31.5
[2025-03-19 06:43] LABS: Hematocrit 25.8 % (39.0-52.0); Hemoglobin 8.1 g/dL (13.0-18.0); Mean Corp Hgb Conc. 31.4 g/dL (33.0-37.0); Mean Corpuscular Volume 88.7 fL (80.0-94.0); Nucleated Red Blood Cells % 0 % (-); Platelet Count 172 10^3/uL (130-400); Red Cell Dist. Width 12.9 % (11.5-14.5)
[2025-03-19 07:29] LABS: ALT (SGPT) 56 U/L (0-50); AST (SGOT) 24 U/L (17-59); Albumin 3.9 g/dl (3.5-5.0); Alkaline Phosphatase 106 U/L (38-126); Blood Urea Nitrogen 34 mg/dl (9-20); Calcium 8.6 mg/dl (8.4-10.2); Carbon Dioxide 27 mmol/L (22-30); Chloride 107 mmol/L (98-107); Estimated Creatinine Clearance 30 ml/min; Glucose 148 mg/dl (70-99); Potassium 5.5 mmol/L (3.5-5.1); Sodium 142 mmol/L (135-145); Total Protein 6.1 g/dl (6.3-8.2); eGFR 24.01
[2025-03-19 08:09] LABS: Glucose - Point of Care 152 mg/dl (70-99)
[2025-03-19 08:13] VITALS: BP 166/85
--- NOTE | 2025-03-19 09:43 | W.PN.CD ---
Today's Communication / Plan
-
continue IV lasix
Impression / Plan
-
Impression
60-year-old male with Multidrug-resistant hypertension, hyperlipidemia, DM 2, CKD stage IV, chronic HFpEF, history of CVA status post tPA, contrast-induced nephropathy in 2021 requiring temporary HD, presents to the ER reporting lower extremity
swelling and dyspnea on exertion.
Plan
#Dyspnea on exertion, lower extremity swelling
Likely secondary to acute exacerbation of HFpEF. Also with CKD4.
# Acute HFPEF, new
-severe, requiring hospitalization and IV diuresis with close monitoring of labs/tele
-Echo with stage III diastolic dysfunction, elevated PASP�59, EF�60%, also moderate/severe MR and moderate TR
-Possible amyloidosis given appearance of LV
-urine LOAN negative for monoclonal free light chains
-to discuss amyloid nuclear scan as outpatient
-last dry weight was 92.5kG
-SGLT2i and ACEi held due to JAISON
-continue lasix 40mg IV bid
-once euvolemic as outpatient, will repeat echo to re-assess MR and TR
#Hypertension
Multidrug-resistant
Patient was on lisinopril, minoxidil, Lasix, labetalol at home.
Lisinopril held at admission due to elevated creatinine
Continue with labetalol 300 mg bid
Physical Exam
Vital Signs/Labs
Vital Signs
Temp Pulse Resp BP Pulse Ox
97.7 F 74 16 166/85 97
03/19/25 08:13 03/19/25 08:13 03/19/25 08:13 03/19/25 08:13 03/19/25 08:13
03/18/25 03/19/25 03/20/25
06:59 06:59 06:59
Actual Weight 96.842 kg 94.064 kg
03/19/25 06:22
03/19/25 06:22
Free T4 1.35 ng/dl (0.78-2.19) 03/17/25 21:17
03/17/25
21:17
Udp-Q-Nmkwlnwhsdo Pept 4770
LAB Results
03/17/25
21:17
Troponin I < 0.012
Physical Exam
Constitutional: No acute distress and Comfortable
EENT: Moist mucous membranes
Cardiovascular: Rhythm & rate is regular, Pedal edema present, JVD present and Systolic murmur present
Respiratory: Respiratory effort normal and Lungs clear to auscul.
Neuro/Psych: AO x 3
Data Reviewed
-
Date of Service: March 19, 2025
EKG: Other (Tele: SR 70s)
Echo: Report Reviewed by me
Labs: Labs Reviewed by me
[2025-03-19] MEDS: NOVOLOG FLEXPEN-MODERATE RESISTANCE 1 UNITS SC ×2 (09:51→17:26)
[2025-03-19] MEDS: HEPARIN 5000 UNITS SC ×2 (09:52→19:46)
[2025-03-19] MEDS: LASIX 40 MG IV ×2 (09:53→16:01)
[2025-03-19] MEDS: APRESOLINE 5 MG IV (10:00)
[2025-03-19] MEDS: LOW STRENGTH ASPIRIN 81 MG PO (10:01)
[2025-03-19] MEDS: SODIUM BICARBONATE 650 MG PO ×2 (10:01→19:48)
[2025-03-19] MEDS: TRANDATE 300 MG PO ×2 (10:01→19:45)
[2025-03-19] MEDS: LOKELMA 10 GRAM PO (10:02)
[2025-03-19 11:09] VITALS: BP 180/92
[2025-03-19 11:47] LABS: Glucose - Point of Care 148 mg/dl (70-99)
--- NOTE | 2025-03-19 11:58 | W.PN.NEPH.PH ---
Today's Communication / Plan
-
diurese
Assessment/Plan
-
Assessment
JAISON on CKD stage IV
Creatinine rising over the past few months, baseline 1.5
Acute HFpEF
Anemia of chronic disease
Essential hypertension
T2DM with diabetic nephropathy
Diabetic neuropathy
Stage III diastolic dysfunction.
Moderate-Severe MR
Plan
continue lasix IV BID
on dc lasix 80 mg po BID
continue IV iron
no ACEI for now
eventual GLP1a and retrial SGLT2i
needs OP colonoscopy (overdue)
d/w pt and
-
-
Date of Service: March 19, 2025
CC / HPI / ROS
-
Chief Complaint:
JAISON
History of Present Illness:
JAISON/Cr down to 2.9
diuresing well for HFpEF
K up at 5.5
edema persists
on IV iron for iron deficiency anemia
Review of Systems:
no CP/SOB
orthopnea better
Labs
-
Labs:
WBC 6.6 10^3/uL (4.8-10.8) 03/19/25 06:22
RBC 2.91 10^6/uL (4.70-6.10) L 03/19/25 06:22
Hgb 8.1 g/dL (13.0-18.0) L 03/19/25 06:22
Hct 25.8 % (39.0-52.0) L 03/19/25 06:22
Plt Count 172 10^3/uL (130-400) 03/19/25 06:22
Sodium 142 mmol/L (135-145) 03/19/25 06:22
Potassium 5.5 mmol/L (3.5-5.1) H 03/19/25 06:22
Chloride 107 mmol/L (98-107) 03/19/25 06:22
Carbon Dioxide 27 mmol/L (22-30) 03/19/25 06:22
BUN 34 mg/dl (9-20) H 03/19/25 06:22
Creatinine 2.9 mg/dL (0.7-1.3) H 03/19/25 06:22
eGFR 24.01 03/19/25 06:22
Glucose 148 mg/dl (70-99) H 03/19/25 06:22
Calcium 8.6 mg/dl (8.4-10.2) 03/19/25 06:22
Wnr-A-Bgwdgbuxxmd Pept 4770 pg/ml 03/17/25 21:17
Albumin 3.9 g/dl (3.5-5.0) 03/19/25 06:22
Physical Exam
-
Vital Signs:
Vital Signs
Temp Pulse Resp BP Pulse Ox
97.8 F 71 18 180/92 98
03/19/25 11:09 03/19/25 11:09 03/19/25 11:09 03/19/25 11:09 03/19/25 11:09
Cardiovascular:: Regular rate and rhythm
Respiratory:: Bilateral: Coarse
Lung Excursion:: Normal
Abdomen:: Nontender and Soft
Bowel Sounds:: Normal
Extremity Edema:: +2: Bilateral:
[2025-03-19] MEDS: NOVOLOG FLEXPEN-MODERATE RESISTANCE SC (12:05)
--- NOTE | 2025-03-19 12:51 | W.PN.HOSP.TC ---
Today's Communication/Plan
-
Monitor vital signs
see plan
Continue with IV diuresis
Monitor renal function
Monitor hemoglobin
Assessment / Plan
Assessment / Plan
General: Comfortable, Conversant and Obese; No Pain, Fever or Chills
HEENT: NormoCephalic, Anicteric, Moist mucous membranes, PERRLA
Respiratory: Clear; No Wheezes, Rales or Rhonchi
Cardiac: S1/S2, Regular Rhythm and Peripheral Edema (+2 lower legs to just above knees)
GI: Soft, Non Tender, Non Distended, Normal Bowel Sounds
Musculoskeletal: Edema, Left Lower Extremity (+2 lower leg to just above knees) and Edema, Right Lower Extremity (+2 lower leg to just above knees)
Neuro: AO x 3, No Motor Deficits, Nonfocal/grossly intact
Psych: Calm
Acute CHF with preserved EF
BNP 4770
-I/O, daily weight
Echo with stage III diastolic dysfunction, elevated pulmonary arterial pressure. Will benefit from sleep study outpatient
Consult cardiology
Continue with IV Lasix
Nephrology evaluation, follows up with Dr. Edgar outpatient
CXR: Mild cardiomegaly cannot exclude tiny bilateral pleural effusions
Venous Doppler negative for DVT
Acute HFPEF, new
Echo with stage III diastolic dysfunction, elevated pulmonary arterial pressure. Moderate/severe MR and moderate TR
Workup for possible amyloidosis per cardiology
Continue with IV diuresis
#Acute on chronic anemia�normocytic
Monitor hemoglobin
#CKD stage IV
#Proteinuria due to diabetic nephropathy
#History of contrast nephropathy required temporary dialysis July 2021 (peak creat 7.17 July 2021)
Creatinine 3.1 creat reports recently 2.8�2.9 but was 3 as of January with GFR of 21 per patient
- Continue sodium bicarb 650 mg twice daily
- Hold lisinopril 10 mg twice daily
Nephrology evaluation
#HTN multidrug resistant
-Continue labetalol 300 mg twice daily
#CVA per patient had symptoms of right-sided weakness and aphasia was status post tPA July 2020-thought to be hypertensive encephalopathy or migraine aura
#July 2020 presented with right-sided weakness and aphasia received alteplase had negative MRI at that time which was negative for CVA
#MRI 07/21/2020 no acute intracranial abnormality
#DM 2 with diabetic nephropathy/diabetic neuropathy
HgbA1c 8.1
Patient reports last A1c was around 11
Patient takes Lantus 20 units at bedtime, NPH 18 units at 6 AM, 1800
Patient takes Novolin are 12 units with breakfast, 12 units at bedtime and 8 units at 1300
monitor with lantus and sliding scale
Hyperkalemia
Lactulose
Monitor
Elevated TSH however normal free T4
Continue to monitor
DVT prophylaxis
sq heparin
Full code
I spent a total of 52 minutes with the patient or on the floor. More than 50% of this time involved counseling and coordination of care.
Anticipated Discharge: > 48 hours
Subjective/Interval History
-
Date of Service: March 19, 2025
Denies pain
Objective Data
-
Labs:
Laboratory Results
03/19/25
06:22
WBC 6.6
Hgb 8.1 L
Hct 25.8 L
Plt Count 172
Sodium 142
Potassium 5.5 H
Chloride 107
Carbon Dioxide 27
BUN 34 H
Creatinine 2.9 H
Glucose 148 H
Calcium 8.6
Total Bilirubin 0.4
AST 24
ALT 56 H
Alkaline Phosphatase 106
Vital Signs:
Vital Signs
Temp Pulse Resp BP Pulse Ox
97.8 F 71 18 180/92 98
03/19/25 11:09 03/19/25 11:09 03/19/25 11:09 03/19/25 11:09 03/19/25 11:09
I&O
03/18/25 03/19/25 03/20/25
06:59 06:59 06:59
Intake Total 840 / 840
Output Total 3400 / 3400
Balance -2560 / -2560
[2025-03-19] MEDS: FERRLECIT 110 MG IV (13:11)
[2025-03-19 15:50] VITALS: BP 168/85
[2025-03-19] MEDS: LIPITOR 80 MG PO (16:02)
[2025-03-19 16:50] LABS: Glucose - Point of Care 166 mg/dl (70-99)
[2025-03-19 19:00] VITALS: BP 190/100
[2025-03-19 21:37] LABS: Glucose - Point of Care 138 mg/dl (70-99)
[2025-03-19] MEDS: LANTUS 0.2 UNITS SC (21:45)
[2025-03-19 23:00] VITALS: BP 159/81
[2025-03-20 04:39] VITALS: BP 148/77
[2025-03-20 06:00] VITALS: BMI 30.7
[2025-03-20 06:59] LABS: ALT (SGPT) 49 U/L (0-50); AST (SGOT) 24 U/L (17-59); Albumin 3.8 g/dl (3.5-5.0); Alkaline Phosphatase 103 U/L (38-126); Blood Urea Nitrogen 35 mg/dl (9-20); Calcium 8.6 mg/dl (8.4-10.2); Carbon Dioxide 29 mmol/L (22-30); Chloride 108 mmol/L (98-107); Estimated Creatinine Clearance 31 ml/min; Glucose 90 mg/dl (70-99); Potassium 5.0 mmol/L (3.5-5.1); Sodium 143 mmol/L (135-145); Total Protein 6.0 g/dl (6.3-8.2); eGFR 25.05
[2025-03-20 07:11] LABS: Hematocrit 25.4 % (39.0-52.0); Hemoglobin 8.3 g/dL (13.0-18.0); Mean Corp Hgb Conc. 32.7 g/dL (33.0-37.0); Mean Corpuscular Volume 87.9 fL (80.0-94.0); Nucleated Red Blood Cells % 0 % (-); Platelet Count 179 10^3/uL (130-400); Red Cell Dist. Width 12.7 % (11.5-14.5)
[2025-03-20 07:32] VITALS: BP 179/80
[2025-03-20 07:34] LABS: Glucose - Point of Care 89 mg/dl (70-99)
[2025-03-20] MEDS: NOVOLOG FLEXPEN-MODERATE RESISTANCE SC ×2 (07:36→11:47)
[2025-03-20] MEDS: LASIX 40 MG IV ×2 (07:37→17:44)
[2025-03-20] MEDS: HEPARIN 5000 UNITS SC ×2 (07:37→19:46)
[2025-03-20] MEDS: SODIUM BICARBONATE 650 MG PO (07:38)
[2025-03-20] MEDS: LOW STRENGTH ASPIRIN 81 MG PO (07:38)
[2025-03-20] MEDS: TRANDATE 300 MG PO ×2 (07:38→19:46)
--- NOTE | 2025-03-20 07:59 | W.PN.CD ---
Today's Communication / Plan
-
- Restart Minoxidil
- Labetalol remain the jose player for his BP control.
- Continue diuresis. Cr is improving.
Impression / Plan
-
Impression
60-year-old male with Multidrug-resistant hypertension, hyperlipidemia, DM 2, CKD stage IV, chronic HFpEF, history of CVA status post tPA, contrast-induced nephropathy in 2021 requiring temporary HD, presents to the ER reporting lower extremity
swelling and dyspnea on exertion.
Plan
#Dyspnea on exertion, lower extremity swelling
Likely secondary to acute exacerbation of HFpEF. Also with CKD4.
# Acute HFPEF, new
-severe, requiring hospitalization and IV diuresis with close monitoring of labs/tele
-Echo with stage III diastolic dysfunction, elevated PASP�59, EF�60%, also moderate/severe MR and moderate TR
-Possible amyloidosis given appearance of LV
-urine LOAN negative for monoclonal free light chains
-to discuss amyloid nuclear scan as outpatient
-last dry weight was 92.5kG
-SGLT2i and ACEi held due to JAISON
-continue lasix 40mg IV bid
-once euvolemic as outpatient, will repeat echo to re-assess MR and TR
#Hypertension
Multidrug-resistant
Elevated andpoorly controlled
Patient was on lisinopril, minoxidil, Lasix, labetalol at home.
Lisinopril held at admission due to elevated creatinine
Continue with labetalol 300 mg bid
Will restart Minoxidil 2.5 mg BID
Physical Exam
Vital Signs/Labs
Vital Signs
Temp Pulse Resp BP Pulse Ox
98.2 F 74 18 179/80 95
03/20/25 04:39 03/20/25 07:37 03/20/25 04:39 03/20/25 07:37 03/20/25 04:39
03/19/25 03/20/25 03/21/25
06:59 06:59 06:59
Actual Weight 94.064 kg 91.671 kg
03/20/25 06:12
03/20/25 06:12
Free T4 1.35 ng/dl (0.78-2.19) 03/17/25 21:17
03/17/25
21:17
Udl-K-Wbbtcoailvb Pept 4770
LAB Results
03/17/25
21:17
Troponin I < 0.012
Physical Exam
Constitutional: No acute distress and Comfortable
EENT: Anicteric and Moist mucous membranes
Cardiovascular: Rhythm & rate is regular, JVD present and Systolic murmur present
Respiratory: Respiratory effort normal and Wheeze Absent
GI: Soft, Distention absent and Non tender
Neuro/Psych: Alert, Oriented, AO x 3 and Motor deficits absent
Data Reviewed
-
Date of Service: March 20, 2025
Medical Decision Making: Reviewed Test Results, Test Interpretation and Review of Case with other Provider
Echo: Tracing Personally Visualized and interpreted
Labs: Labs Reviewed by me
Old Records: Reviewed
[2025-03-20] MEDS: LONITEN 2.5 MG PO ×2 (10:37→19:47)
[2025-03-20 11:04] VITALS: BP 189/94
[2025-03-20 11:43] LABS: Glucose - Point of Care 113 mg/dl (70-99)
--- NOTE | 2025-03-20 12:21 | CM ---
Chart reviewed. Care ongoing
Plan is for patient to d/c home w/ OP therapy
--- NOTE | 2025-03-20 13:22 | W.PN.HOSP.TC ---
Today's Communication/Plan
-
Monitor vitals
See plan
Continue with IV diuresis
Continue with insulin
Discussed with family at bedside
Assessment / Plan
Assessment / Plan
General: Comfortable, Conversant and Obese; No Pain, Fever or Chills
HEENT: NormoCephalic, Anicteric, Moist mucous membranes, PERRLA
Respiratory: Clear; No Wheezes, Rales or Rhonchi
Cardiac: S1/S2, Regular Rhythm and Peripheral Edema (+2 lower legs to just above knees)
GI: Soft, Non Tender, Non Distended, Normal Bowel Sounds
Musculoskeletal: Edema, Left Lower Extremity (+2 lower leg to just above knees) and Edema, Right Lower Extremity (+2 lower leg to just above knees)
Neuro: AO x 3, No Motor Deficits, Nonfocal/grossly intact
Psych: Calm
Acute CHF with preserved EF
BNP 4770
-I/O, daily weight
Echo with stage III diastolic dysfunction, elevated pulmonary arterial pressure. Will benefit from sleep study outpatient
Consult cardiology
Continue with IV Lasix
Nephrology evaluation, follows up with Dr. Edgar outpatient
CXR: Mild cardiomegaly cannot exclude tiny bilateral pleural effusions
Venous Doppler negative for DVT
started minoxidil
Acute HFPEF, new
Echo with stage III diastolic dysfunction, elevated pulmonary arterial pressure. Moderate/severe MR and moderate TR
Workup for possible amyloidosis per cardiology
Continue with IV diuresis
#Acute on chronic anemia�normocytic
Monitor hemoglobin
#CKD stage IV
#Proteinuria due to diabetic nephropathy
#History of contrast nephropathy required temporary dialysis July 2021 (peak creat 7.17 July 2021)
Creatinine 3.1 creat reports recently 2.8�2.9 but was 3 as of January with GFR of 21 per patient
- Continue sodium bicarb 650 mg twice daily
- Hold lisinopril 10 mg twice daily; restart when ok with nephrology
Nephrology evaluation
#HTN multidrug resistant
-Continue labetalol 300 mg twice daily
#CVA per patient had symptoms of right-sided weakness and aphasia was status post tPA July 2020-thought to be hypertensive encephalopathy or migraine aura
#July 2020 presented with right-sided weakness and aphasia received alteplase had negative MRI at that time which was negative for CVA
#MRI 07/21/2020 no acute intracranial abnormality
#DM 2 with diabetic nephropathy/diabetic neuropathy
HgbA1c 8.1
Patient reports last A1c was around 11
Patient takes Lantus 20 units at bedtime, NPH 18 units at 6 AM, 1800
Patient takes Novolin are 12 units with breakfast, 12 units at bedtime and 8 units at 1300
monitor with lantus and sliding scale
Hyperkalemia
Lactulose
Monitor
Elevated TSH however normal free T4
Continue to monitor
DVT prophylaxis
sq heparin
Full code
I spent a total of 53 minutes with the patient or on the floor. More than 50% of this time involved counseling and coordination of care.
Anticipated Discharge: 24 - 48 hours
Subjective/Interval History
-
Date of Service: March 20, 2025
denies pain
Objective Data
-
Labs:
Laboratory Results
03/20/25
06:12
WBC 6.9
Hgb 8.3 L
Hct 25.4 L
Plt Count 179
Sodium 143
Potassium 5.0
Chloride 108 H
Carbon Dioxide 29
BUN 35 H
Creatinine 2.8 H
Glucose 90
Calcium 8.6
Total Bilirubin 0.4
AST 24
ALT 49
Alkaline Phosphatase 103
Vital Signs:
Vital Signs
Temp Pulse Resp BP Pulse Ox
97.6 F 72 18 189/94 98
03/20/25 11:04 03/20/25 11:04 03/20/25 11:04 03/20/25 11:04 03/20/25 11:04
I&O
03/19/25 03/20/25 03/21/25
06:59 06:59 06:59
Intake Total 840 / 840 480 / 480
Output Total 3400 / 3400 3025 / 3025
Balance -2560 / -2560 -2545 / -2545
[2025-03-20] MEDS: FERRLECIT 110 MG IV (13:30)
[2025-03-20 15:51] VITALS: BP 184/91
[2025-03-20 16:51] LABS: Glucose - Point of Care 181 mg/dl (70-99)
--- NOTE | 2025-03-20 17:28 | W.PN.NEPH.PH ---
Today's Communication / Plan
-
see plan
Assessment/Plan
-
Assessment
JAISON on CKD stage IV
Creatinine rising over the past few months, baseline high 2 range in last 1yr
Acute HFpEF
Anemia of chronic disease
Essential hypertension
T2DM with diabetic nephropathy
Diabetic neuropathy
Stage III diastolic dysfunction.
Moderate-Severe MR
Plan:
cr slightly down 2.8-slow to improve-suspect he is at baseline
continue lasix IV BID
on dc lasix 80 mg po BID and titrate as needed
continue IV iron
hold ACEI still
hyperkalemia improving
eventual GLP1a and retrial SGLT2i(was d/c due to JAISON in last 1yr)
needs OP colonoscopy (overdue)
BP are high, back on minoxidil currently at 2.5mg BID, cont BB
evolving met alkalosis hold po bicarb -may be daily at d/c
if renal function stable ok to d/c tomorrow
f/u Dr Zarate
ok to titrate up minoxidil for HTN with careful watch on fluid retention
-
-
Date of Service: March 20, 2025
CC / HPI / ROS
-
Chief Complaint:
JAISON
History of Present Illness:
JAISON/Cr down to 2.8
diuresing well for HFpEF
K down to 5
edema resolving
on IV iron for iron deficiency anemia
Review of Systems:
no CP/SOB
close to basirane
Labs
-
Labs:
WBC 6.9 10^3/uL (4.8-10.8) 03/20/25 06:12
RBC 2.89 10^6/uL (4.70-6.10) L 03/20/25 06:12
Hgb 8.3 g/dL (13.0-18.0) L 03/20/25 06:12
Hct 25.4 % (39.0-52.0) L 03/20/25 06:12
Plt Count 179 10^3/uL (130-400) 03/20/25 06:12
Sodium 143 mmol/L (135-145) 03/20/25 06:12
Potassium 5.0 mmol/L (3.5-5.1) 03/20/25 06:12
Chloride 108 mmol/L (98-107) H 03/20/25 06:12
Carbon Dioxide 29 mmol/L (22-30) 03/20/25 06:12
BUN 35 mg/dl (9-20) H 03/20/25 06:12
Creatinine 2.8 mg/dL (0.7-1.3) H 03/20/25 06:12
eGFR 25.05 03/20/25 06:12
Glucose 90 mg/dl (70-99) 03/20/25 06:12
Calcium 8.6 mg/dl (8.4-10.2) 03/20/25 06:12
Bda-Q-Zyokivmgpmb Pept 4770 pg/ml 03/17/25 21:17
Albumin 3.8 g/dl (3.5-5.0) 03/20/25 06:12
Physical Exam
-
Vital Signs:
Vital Signs
Temp Pulse Resp BP Pulse Ox
97.7 F 69 18 184/91 97
03/20/25 15:51 03/20/25 15:51 03/20/25 15:51 03/20/25 15:51 03/20/25 15:51
Cardiovascular:: Regular rate and rhythm
Respiratory:: Bilateral: Coarse
Lung Excursion:: Normal
Abdomen:: Nontender and Soft
Bowel Sounds:: Normal
Extremity Edema:: None: Bilateral: (trace)
Luis Catheter: No
[2025-03-20] MEDS: NOVOLOG FLEXPEN-MODERATE RESISTANCE 1 UNITS SC (17:45)
[2025-03-20] MEDS: LIPITOR 80 MG PO (17:46)
[2025-03-20 19:39] VITALS: BP 192/99
[2025-03-20 21:15] LABS: Glucose - Point of Care 142 mg/dl (70-99)
[2025-03-20] MEDS: LANTUS 0.2 UNITS SC (22:05)
[2025-03-20 23:02] VITALS: BP 168/83
[2025-03-21 03:15] VITALS: BP 150/77
[2025-03-21 04:49] VITALS: BMI 30.6
[2025-03-21 06:51] LABS: Hematocrit 25.8 % (39.0-52.0); Hemoglobin 8.5 g/dL (13.0-18.0); Mean Corp Hgb Conc. 32.9 g/dL (33.0-37.0); Mean Corpuscular Volume 86.9 fL (80.0-94.0); Nucleated Red Blood Cells % 0 % (-); Platelet Count 191 10^3/uL (130-400); Red Cell Dist. Width 12.8 % (11.5-14.5)
[2025-03-21 07:12] LABS: ALT (SGPT) 44 U/L (0-50); AST (SGOT) 26 U/L (17-59); Albumin 3.8 g/dl (3.5-5.0); Alkaline Phosphatase 109 U/L (38-126); Blood Urea Nitrogen 37 mg/dl (9-20); Calcium 8.5 mg/dl (8.4-10.2); Carbon Dioxide 30 mmol/L (22-30); Chloride 105 mmol/L (98-107); Estimated Creatinine Clearance 31 ml/min; Glucose 59 mg/dl (70-99); Potassium 4.7 mmol/L (3.5-5.1); Sodium 140 mmol/L (135-145); Total Protein 6.1 g/dl (6.3-8.2); eGFR 25.05
--- NOTE | 2025-03-21 07:52 | W.PN.CD ---
Today's Communication / Plan
-
conitnue IV diuresis
continue current medications,will increase labetolol for more control to 400mg BID
d/c planning suspect home in 24-48 hours
Impression / Plan
-
Impression
60-year-old male with Multidrug-resistant hypertension, hyperlipidemia, DM 2, CKD stage IV, chronic HFpEF, history of CVA status post tPA, contrast-induced nephropathy in 2021 requiring temporary HD, presents to the ER reporting lower extremity
swelling and dyspnea on exertion.
Plan
#Dyspnea on exertion, lower extremity swelling
Likely secondary to acute exacerbation of HFpEF. Also with CKD4.
# Acute HFPEF, new
-severe, requiring hospitalization and IV diuresis with close monitoring of labs/tele
-Echo with stage III diastolic dysfunction, elevated PASP�59, EF�60%, also moderate/severe MR and moderate TR
-Possible amyloidosis given appearance of LV
-urine LOAN negative for monoclonal free light chains
-to discuss amyloid nuclear scan as outpatient
-last dry weight was 92.5kG, think we can push this a bit lower
-SGLT2i and ACEi held due to JAISON
-continue lasix 40mg IV bid approaching euvolemia likely po tomorrow
-once euvolemic as outpatient, will repeat echo to re-assess MR and TR
#Hypertension
Multidrug-resistant
Elevated and poorly controlled
Patient was on lisinopril, minoxidil, Lasix, labetalol at home.
Lisinopril held at admission due to elevated creatinine
Continue with labetalol 300 mg bid--will increase today
Minoxidil 2.5 mg BID resumed yesterday
Physical Exam
Vital Signs/Labs
Vital Signs
Temp Pulse Resp BP Pulse Ox
98.1 F 81 18 150/77 95
03/21/25 03:15 03/21/25 03:15 03/21/25 03:15 03/21/25 03:15 03/21/25 03:15
03/20/25 03/21/25 03/22/25
06:59 06:59 06:59
Actual Weight 202 lb 1.6 oz 201 lb
03/21/25 06:05
03/21/25 06:05
Free T4 1.35 ng/dl (0.78-2.19) 03/17/25 21:17
03/17/25
21:17
Tht-Q-Xkvgqdrhoje Pept 4770
Physical Exam
Constitutional: No acute distress
Cardiovascular: Rhythm & rate is regular, Systolic murmur absent, Diastolic murmur absent, Pedal edema present and JVD present (12 cm H20)
Respiratory: Respiratory effort normal, Lungs clear to auscul., Wheeze Absent and Crackles Absent
Neuro/Psych: AO x 3
Data Reviewed
-
Date of Service: March 21, 2025
Medical Decision Making: Review of Case with other Provider (Dr smith, increase labetolol dc planning)
EKG: Other (tele is sinus)
[2025-03-21 08:06] LABS: Glucose - Point of Care 58 mg/dl (70-99)
[2025-03-21] MEDS: NOVOLOG FLEXPEN-MODERATE RESISTANCE SC ×2 (08:10→12:38)
[2025-03-21] MEDS: HEPARIN 5000 UNITS SC ×2 (08:10→19:44)
[2025-03-21] MEDS: LASIX 40 MG IV ×2 (08:11→15:45)
[2025-03-21] MEDS: LOW STRENGTH ASPIRIN 81 MG PO (08:13)
[2025-03-21] MEDS: LONITEN 2.5 MG PO ×2 (08:13→19:45)
[2025-03-21] MEDS: TRANDATE 300 MG PO (08:14)
[2025-03-21 08:33] LABS: Glucose - Point of Care 77 mg/dl (70-99)
[2025-03-21 08:39] VITALS: BP 175/95
[2025-03-21 11:34] LABS: Glucose - Point of Care 69 mg/dl (70-99)
[2025-03-21 11:42] VITALS: BP 160/86
[2025-03-21 12:12] LABS: Glucose - Point of Care 92 mg/dl (70-99)
--- NOTE | 2025-03-21 12:54 | W.PN.NEPH.PH ---
Today's Communication / Plan
-
see plan
Assessment/Plan
-
Assessment
JAISON on CKD stage IV
Creatinine rising over the past few months, baseline high 2 range in last 1yr
Acute HFpEF
Anemia of chronic disease
Essential hypertension
T2DM with diabetic nephropathy
Diabetic neuropathy
Stage III diastolic dysfunction.
Moderate-Severe MR
Plan:
cr stable at 2.8-suspect he is at baseline
continue lasix IV BID while in hospital
on dc lasix 80 mg po BID and titrate as needed
continue IV iron
ok to resume ACEI now hyperkalemia resolved
eventual GLP1a and retrial SGLT2i(was d/c due to JAISON in last 1yr)
needs OP colonoscopy (overdue)
BP are high, back on minoxidil currently at 2.5mg BID, increased BB per cards
since starting minoxidil in november he has more fluid retention so will hold up further titration
evolving met alkalosis holding po bicarb -may be resume daily at d/c
ok for d/c
f/u Dr Zarate
-
-
Date of Service: March 21, 2025
CC / HPI / ROS
-
Chief Complaint:
JAISON
History of Present Illness:
JAISON/Cr stable at 2.8
diuresing well for HFpEF
K down to4.7
on IV iron for iron deficiency anemia, hb 8.5
Review of Systems:
no CP/SOB
Labs
-
Labs:
WBC 7.8 10^3/uL (4.8-10.8) 03/21/25 06:05
RBC 2.97 10^6/uL (4.70-6.10) L 03/21/25 06:05
Hgb 8.5 g/dL (13.0-18.0) L 03/21/25 06:05
Hct 25.8 % (39.0-52.0) L 03/21/25 06:05
Plt Count 191 10^3/uL (130-400) 03/21/25 06:05
Sodium 140 mmol/L (135-145) 03/21/25 06:05
Potassium 4.7 mmol/L (3.5-5.1) 03/21/25 06:05
Chloride 105 mmol/L (98-107) 03/21/25 06:05
Carbon Dioxide 30 mmol/L (22-30) 03/21/25 06:05
BUN 37 mg/dl (9-20) H 03/21/25 06:05
Creatinine 2.8 mg/dL (0.7-1.3) H 03/21/25 06:05
eGFR 25.05 03/21/25 06:05
Glucose 59 mg/dl (70-99) L 03/21/25 06:05
Calcium 8.5 mg/dl (8.4-10.2) 03/21/25 06:05
Oub-Z-Fwmxgedaszo Pept 4770 pg/ml 03/17/25 21:17
Albumin 3.8 g/dl (3.5-5.0) 03/21/25 06:05
Physical Exam
-
Vital Signs:
Vital Signs
Temp Pulse Resp BP Pulse Ox
97.6 F 77 18 160/86 97
03/21/25 11:42 03/21/25 11:42 03/21/25 11:42 03/21/25 11:42 03/21/25 11:42
Cardiovascular:: Regular rate and rhythm
Respiratory:: Bilateral: CTA
Lung Excursion:: Normal
Abdomen:: Nontender and Soft
Bowel Sounds:: Normal
Extremity Edema:: +1: Bilateral:
Luis Catheter: No
--- NOTE | 2025-03-21 12:57 | W.PN.HOSP.TC ---
Today's Communication/Plan
-
Monitor vitals
See plan
Continue with IV diuresis
Increase labetalol
Continue with insulin
Assessment / Plan
Assessment / Plan
General: Comfortable, Conversant and Obese; No Pain, Fever or Chills
HEENT: NormoCephalic, Anicteric, Moist mucous membranes, PERRLA
Respiratory: Clear; No Wheezes, Rales or Rhonchi
Cardiac: S1/S2, Regular Rhythm and Peripheral Edema (+2 lower legs to just above knees)
GI: Soft, Non Tender, Non Distended, Normal Bowel Sounds
Musculoskeletal: Edema, Left Lower Extremity (+2 lower leg to just above knees) and Edema, Right Lower Extremity (+2 lower leg to just above knees)
Neuro: AO x 3, No Motor Deficits, Nonfocal/grossly intact
Psych: Calm
Acute CHF with preserved EF
BNP 4770
-I/O, daily weight
Echo with stage III diastolic dysfunction, elevated pulmonary arterial pressure. Will benefit from sleep study outpatient
Cardiology following, increased labetalol to 400 mg twice daily
Continue with IV Lasix
Nephrology evaluation, follows up with Dr. Edgar outpatient
CXR: Mild cardiomegaly cannot exclude tiny bilateral pleural effusions
Venous Doppler negative for DVT
started minoxidil
Acute HFPEF, new
Echo with stage III diastolic dysfunction, elevated pulmonary arterial pressure. Moderate/severe MR and moderate TR
Workup for possible amyloidosis per cardiology
Continue with IV diuresis
#Acute on chronic anemia�normocytic
Monitor hemoglobin
#CKD stage IV
#Proteinuria due to diabetic nephropathy
#History of contrast nephropathy required temporary dialysis July 2021 (peak creat 7.17 July 2021)
Creatinine 3.1 creat reports recently 2.8�2.9 but was 3 as of January with GFR of 21 per patient
- Continue sodium bicarb 650 mg twice daily
- Hold lisinopril 10 mg twice daily; restart when ok with nephrology
Nephrology evaluation
#HTN multidrug resistant
-Continue labetalol 300 mg twice daily
#CVA per patient had symptoms of right-sided weakness and aphasia was status post tPA July 2020-thought to be hypertensive encephalopathy or migraine aura
#July 2020 presented with right-sided weakness and aphasia received alteplase had negative MRI at that time which was negative for CVA
#MRI 07/21/2020 no acute intracranial abnormality
#DM 2 with diabetic nephropathy/diabetic neuropathy
HgbA1c 8.1
Patient reports last A1c was around 11
Patient takes Lantus 20 units at bedtime, NPH 18 units at 6 AM, 1800
Patient takes Novolin are 12 units with breakfast, 12 units at bedtime and 8 units at 1300
monitor with lantus and sliding scale. Patient has been requiring a lot of insulin here since compliant with diet here. Advised patient to titrate his insulin when he is discharged according to what type of diet he consumes
Hyperkalemia
Lactulose
Monitor
Elevated TSH however normal free T4
Continue to monitor
DVT prophylaxis
sq heparin
Full code
I spent a total of 52 minutes with the patient or on the floor. More than 50% of this time involved counseling and coordination of care.
Anticipated Discharge: Within 24 hours
Subjective/Interval History
-
Date of Service: March 21, 2025
Denies pain
Objective Data
-
Labs:
Laboratory Results
03/21/25
06:05
WBC 7.8
Hgb 8.5 L
Hct 25.8 L
Plt Count 191
Sodium 140
Potassium 4.7
Chloride 105
Carbon Dioxide 30
BUN 37 H
Creatinine 2.8 H
Glucose 59 L
Calcium 8.5
Total Bilirubin 0.4
AST 26
ALT 44
Alkaline Phosphatase 109
Vital Signs:
Vital Signs
Temp Pulse Resp BP Pulse Ox
97.6 F 77 18 160/86 97
03/21/25 11:42 03/21/25 11:42 03/21/25 11:42 03/21/25 11:42 03/21/25 11:42
I&O
03/20/25 03/21/25 03/22/25
06:59 06:59 06:59
Intake Total 480 / 480 1999 / 1999
Output Total 3025 / 3025 3250 / 3250
Balance -2545 / -2545 -1250 / -1250
[2025-03-21] MEDS: FERRLECIT 110 MG IV (13:14)
--- NOTE | 2025-03-21 13:21 | CM ---
CM reviewed chart, care ongoing, continue with IV diuresis.
Patient will require script for outpatient therapy upon discharge. CM will continue to follow for all discharge planning needs.
Plan; home with script for outpatient therapy
[2025-03-21 16:38] LABS: Glucose - Point of Care 209 mg/dl (70-99)
[2025-03-21] MEDS: NOVOLOG FLEXPEN-MODERATE RESISTANCE 3 UNITS SC (17:13)
[2025-03-21] MEDS: LIPITOR 80 MG PO (17:13)
[2025-03-21 19:00] VITALS: BP 172/82
[2025-03-21] MEDS: TRANDATE 400 MG PO (19:45)
[2025-03-21 22:17] LABS: Glucose - Point of Care 174 mg/dl (70-99)
[2025-03-21] MEDS: LANTUS 0.18 UNITS SC (22:17)
[2025-03-21 23:00] VITALS: BP 152/78
[2025-03-22 03:00] VITALS: BP 138/73
[2025-03-22 06:00] VITALS: BMI 30.3
[2025-03-22 07:10] VITALS: BP 155/85
[2025-03-22 07:50] LABS: Glucose - Point of Care 150 mg/dl (70-99)
[2025-03-22] MEDS: LONITEN 2.5 MG PO (08:22)
[2025-03-22] MEDS: TRANDATE 400 MG PO (08:22)
[2025-03-22] MEDS: HEPARIN 5000 UNITS SC (08:22)
[2025-03-22] MEDS: LOW STRENGTH ASPIRIN 81 MG PO (08:22)
[2025-03-22] MEDS: LASIX 40 MG IV (08:23)
[2025-03-22] MEDS: NOVOLOG FLEXPEN-MODERATE RESISTANCE 1 UNITS SC (08:24)
[2025-03-22 08:50] LABS: Hematocrit 27.3 % (39.0-52.0); Hemoglobin 9.0 g/dL (13.0-18.0); Mean Corp Hgb Conc. 33.0 g/dL (33.0-37.0); Mean Corpuscular Volume 87.5 fL (80.0-94.0); Nucleated Red Blood Cells % 0 % (-); Platelet Count 212 10^3/uL (130-400); Red Cell Dist. Width 12.7 % (11.5-14.5)
[2025-03-22 09:22] LABS: ALT (SGPT) 45 U/L (0-50); AST (SGOT) 32 U/L (17-59); Albumin 4.1 g/dl (3.5-5.0); Alkaline Phosphatase 118 U/L (38-126); Blood Urea Nitrogen 39 mg/dl (9-20); Calcium 8.4 mg/dl (8.4-10.2); Carbon Dioxide 26 mmol/L (22-30); Chloride 103 mmol/L (98-107); Estimated Creatinine Clearance 31 ml/min; Glucose 144 mg/dl (70-99); Potassium 5.0 mmol/L (3.5-5.1); Sodium 138 mmol/L (135-145); Total Protein 6.5 g/dl (6.3-8.2); eGFR 25.05
--- NOTE | 2025-03-22 09:24 | W.PN.CD ---
Addendum entered and electronically signed by Juan Renteria MD 03/22/25 09:33:
- Outpatient follow-up with Cardiology.
Original Note:
Today's Communication / Plan
-
-Will transition to Lasix 40 mg daily, which should be his new home dose.
-Once euvolemic as outpatient, will repeat echo to re-assess MR and TR.
- Continue labetalol 400 mg BID.
Impression / Plan
-
Impression
60-year-old male with Multidrug-resistant hypertension, hyperlipidemia, DM 2, CKD stage IV, chronic HFpEF, history of CVA status post tPA, contrast-induced nephropathy in 2021 requiring temporary HD, presents to the ER reporting lower extremity
swelling and dyspnea on exertion.
Plan
# Acute HFPEF:
-severe, requiring hospitalization and IV diuresis with close monitoring of labs/tele
-Echo with stage III diastolic dysfunction, elevated PASP�59, EF�60%, also moderate/severe MR and moderate TR
-Possible amyloidosis given appearance of LV
-urine LOAN negative for monoclonal free light chains
-to discuss amyloid nuclear scan as outpatient
-last dry weight was 92.5kG, think we can push this a bit lower
-SGLT2i and ACEi held due to JAISON
-Will transition to Lasix 40 mg daily, which should be his new home dose.
-Once euvolemic as outpatient, will repeat echo to re-assess MR and TR.
#Hypertension
Multidrug-resistant
Improved
Patient was on lisinopril, minoxidil, Lasix, labetalol at home.
Lisinopril discontinued at admission due to elevated creatinine.
-Continue labetalol 400 mg BID.
-Continue Minoxidil 2.5 mg BID.
Physical Exam
Vital Signs/Labs
Vital Signs
Temp Pulse Resp BP Pulse Ox
98.1 F 84 18 155/85 93
03/22/25 07:10 03/22/25 07:10 03/22/25 07:10 03/22/25 07:10 03/22/25 07:10
03/21/25 03/22/25 03/23/25
06:59 06:59 06:59
Actual Weight 91.172 kg 90.293 kg
03/22/25 08:04
03/22/25 08:04
Free T4 1.35 ng/dl (0.78-2.19) 03/17/25 21:17
03/17/25
21:17
Nhy-O-Qwbzyfgcrzo Pept 4770
Physical Exam
Constitutional: No acute distress and Comfortable
EENT: Anicteric
Cardiovascular: Rhythm & rate is regular, Pedal edema present (1-2+), Systolic murmur present (2+) and S1S2 is normal
Respiratory: Respiratory effort normal and Lungs clear to auscul.
GI: Soft
Neuro/Psych: AO x 3
Other: Skin (Warm, dry, intact)
Data Reviewed
-
Date of Service: March 22, 2025
EKG: Report Reviewed by me (Telemetry: Sinus rhythm)
Echo: Report Reviewed by me (EF 60%, stage III diastolic dysfunction; moderate to severe MR; moderate TR, PASP 59 mmHg.)
Labs: Labs Reviewed by me
--- NOTE | 2025-03-22 10:59 | W.PN.HOSP.TC ---
Today's Communication/Plan
-
monitor vitals
see plan
Change to p.o. Lasix
Continue labetalol
Insulin
Discharge today
Time of discharge 38 minutes
Assessment / Plan
Assessment / Plan
General: Comfortable, Conversant and Obese; No Pain, Fever or Chills
HEENT: NormoCephalic, Anicteric, Moist mucous membranes, PERRLA
Respiratory: Clear; No Wheezes, Rales or Rhonchi
Cardiac: S1/S2, Regular Rhythm
GI: Soft, Non Tender, Non Distended, Normal Bowel Sounds
Musculoskeletal: Edema, Left Lower Extremity improving
Neuro: AO x 3, No Motor Deficits, Nonfocal/grossly intact
Psych: Calm
Acute CHF with preserved EF
BNP 4770
-I/O, daily weight
Echo with stage III diastolic dysfunction, elevated pulmonary arterial pressure. Will benefit from sleep study outpatient
Cardiology following, increased labetalol to 400 mg twice daily
Change Lasix to oral, discussed with nephrology and they are okay with 80 mg p.o. daily
Nephrology evaluation, follows up with Dr. Edgar outpatient
CXR: Mild cardiomegaly cannot exclude tiny bilateral pleural effusions
Venous Doppler negative for DVT
started minoxidil
Acute HFPEF, new
Echo with stage III diastolic dysfunction, elevated pulmonary arterial pressure. Moderate/severe MR and moderate TR
Workup for possible amyloidosis per cardiology
Continue with diuresis
#Acute on chronic anemia�normocytic
Monitor hemoglobin
#CKD stage IV
#Proteinuria due to diabetic nephropathy
#History of contrast nephropathy required temporary dialysis July 2021 (peak creat 7.17 July 2021)
Creatinine 3.1 creat reports recently 2.8�2.9 but was 3 as of January with GFR of 21 per patient
- Continue sodium bicarb 650 mg twice daily
- Hold lisinopril 10 mg twice daily; restart when ok with nephrology
Nephrology evaluation
#HTN multidrug resistant
-inc labetalol 400 mg twice daily
#CVA per patient had symptoms of right-sided weakness and aphasia was status post tPA July 2020-thought to be hypertensive encephalopathy or migraine aura
#July 2020 presented with right-sided weakness and aphasia received alteplase had negative MRI at that time which was negative for CVA
#MRI 07/21/2020 no acute intracranial abnormality
#DM 2 with diabetic nephropathy/diabetic neuropathy
HgbA1c 8.1
Patient reports last A1c was around 11
Patient takes Lantus 20 units at bedtime, NPH 18 units at 6 AM, 1800
Patient takes Novolin are 12 units with breakfast, 12 units at bedtime and 8 units at 1300
monitor with lantus and sliding scale. Patient has been requiring a lot of insulin here since compliant with diet here. Advised patient to titrate his insulin when he is discharged according to what type of diet he consumes
Hyperkalemia
Lactulose
Monitor
Elevated TSH however normal free T4
Continue to monitor
DVT prophylaxis
sq heparin
Full code
Anticipated Discharge: Today
Subjective/Interval History
-
Date of Service: March 22, 2025
denies pain
Objective Data
-
Labs:
Laboratory Results
03/22/25
08:04
WBC 7.2
Hgb 9.0 L
Hct 27.3 L
Plt Count 212
Sodium 138
Potassium 5.0
Chloride 103
Carbon Dioxide 26
BUN 39 H
Creatinine 2.8 H
Glucose 144 H
Calcium 8.4
Total Bilirubin 0.4
AST 32
ALT 45
Alkaline Phosphatase 118
Vital Signs:
Vital Signs
Temp Pulse Resp BP Pulse Ox
98.1 F 84 18 155/85 93
03/22/25 07:10 03/22/25 07:10 03/22/25 07:10 03/22/25 07:10 03/22/25 07:10
I&O
03/21/25 03/22/25 03/23/25
06:59 06:59 06:59
Intake Total 1999 / 1999 1440 / 1440
Output Total 3250 / 3250 1800 / 1800
Balance -1250 / -1250 -360 / -360
[2025-03-22 11:16] VITALS: BP 161/82
--- NOTE | 2025-03-22 11:46 | W.DCSUMMARY ---
Discharge Summary
Discharge Data
Date of Admission: 03/17/25
Date of Discharge: 03/22/25
-
Pending Results: No
Hospital Course
60-year-old male with past medical history of diabetes mellitus, hypertension, CVA, anemia, CKD came to the hospital with lower extremity swelling and shortness of breath consistent with acute congestive heart failure with preserved ejection
fraction. Echocardiogram was done which showed stage III diastolic dysfunction. Patient was seen by cardiology and nephrology throughout hospitalization and was started on IV diuresis. On discharge he was put on higher dose of daily p.o. Lasix.
For his renal function it continue to improve over time and he was instructed to follow-up closely with nephrology outpatient for repeat BMP. For his diabetes since he was compliant with diabetic diet here his insulin requirements were less. On
discharge he was instructed to continue to monitor his sugars and to uptitrate his insulin as necessary. Once his symptoms continue to improve, he was then discharged home with instructions to follow-up with all his physicians outpatient.
Discharge Plan
-
Patient Disposition: Home (Routine Discharge)
Discharge Diagnosis/Procedures: Acute congestive heart failure with preserved ejection fraction
Acute on chronic anemia
JAISON on CKD 4
Diet: As tolerated and Diabetic, Carb Controlled
Activity: As tolerated
Driving Restrictions: As prior to admission
Bathing Restrictions: None
Blood Work: BMP next week with primary care provider or nephrology
Referrals:
Tamika Dahl NP [Specified Professional Personl, Cardiology] - 04/04/25 9:40 am
Ghassan Edgar DO [Active, Nephrology]
Forrest Kovacs MD [Family Provider, Family Practice] - in less than 1 week
Prescriptions:
New
furosemide 80 mg Tablet
80 mg PO DAILY Qty: 30 0RF
Continued
multivitamin with folic acid [Tab-A-Jazz] 1 TABLET tablet
1 tab PO DAILY
Patient Comments:
UNKNOWN IF PT TOOK THIS MED THIS AM
atorvastatin 80 MG tablet
80 mg PO QPM Qty: 30 0RF
Rx Instructions:
NEW MED
aspirin 81 MG tablet,chewable
81 mg PO DAILY Qty: 1 0RF
minoxidil 2.5 mg tablet
2.5 mg PO BID
Skyrizi
150 mg SC DIRECTED
Rx Instructions:
Every 90 days
Changed
labetalol 200 MG tablet
400 mg PO BID Qty: 120 2RF
Lantus Solostar U-100 Insulin
18 units SC HS Qty: 0 0RF
sodium bicarbonate
650 mg PO DAILY Qty: 0 0RF
Held
lisinopril 10 MG tablet
10 mg PO BID 0RF
Hold Instructions: Restart when okay with nephrology
Humulin N NPH Insulin KwikPen 300 UNITS/3 ML insulin pen
18 units SC BID@0800,1700 0RF
Hold Instructions: Restart if sugars are increasing
Novolin R FlexPen 300 UNITS/3 ML insulin pen
6 units SC DAILY@1200
Hold Instructions: Restart if sugars are increasing
Novolin R FlexPen 300 UNITS/3 ML insulin pen
12 units SC DAILY@0730,2100
Hold Instructions: Restart if sugars are increasing
Discontinued
furosemide 20 MG tablet
20 mg PO DAILY
Rx Instructions:
Patient took 40 mg Tuesday and today 03/17/2025
Discharge Orders:
Discharge Patient (As Directed); Ordered 03/22/25
Ordered By: Timmy Jackson
Discharge Date and Time
Discharge Date/Time: 03/22/25 13:17
Print Language: LAO
[2025-03-22 11:48] LABS: Glucose - Point of Care 159 mg/dl (70-99)
--- NOTE | 2025-03-22 12:04 | CM ---
Chart reviewed. Patient will d/c today
Therapy rec OP. Hospitalist provided script
No CM needs at this time
Plan: Home w/ OP therapy
--- NOTE | 2025-03-22 15:25 | W.PN.NEPH.PH ---
Today's Communication / Plan
-
dc
Assessment/Plan
-
Assessment
JAISON on CKD stage IV
Creatinine rising over the past few months, baseline high 2 range in last 1yr
Acute HFpEF
Anemia of chronic disease
Essential hypertension
T2DM with diabetic nephropathy
Diabetic neuropathy
Stage III diastolic dysfunction.
Moderate-Severe MR
Plan:
lasix 80mg po daily
will determine ACEI and SGLT2i as OP visit
he will call for office appt
eventual GLP1a
needs OP colonoscopy (overdue)
-
-
Date of Service: March 22, 2025
CC / HPI / ROS
-
Chief Complaint:
JAISON
History of Present Illness:
JAISON/Cr stable at 2.8
diuresing well for HFpEF
K stable 5.0
on IV iron for iron deficiency anemia 5 doses
Review of Systems:
no CP/SOB
Labs
-
Labs:
WBC 7.2 10^3/uL (4.8-10.8) 03/22/25 08:04
RBC 3.12 10^6/uL (4.70-6.10) L 03/22/25 08:04
Hgb 9.0 g/dL (13.0-18.0) L 03/22/25 08:04
Hct 27.3 % (39.0-52.0) L 03/22/25 08:04
Plt Count 212 10^3/uL (130-400) 03/22/25 08:04
Sodium 138 mmol/L (135-145) 03/22/25 08:04
Potassium 5.0 mmol/L (3.5-5.1) 03/22/25 08:04
Chloride 103 mmol/L (98-107) 03/22/25 08:04
Carbon Dioxide 26 mmol/L (22-30) 03/22/25 08:04
BUN 39 mg/dl (9-20) H 03/22/25 08:04
Creatinine 2.8 mg/dL (0.7-1.3) H 03/22/25 08:04
eGFR 25.05 03/22/25 08:04
Glucose 144 mg/dl (70-99) H 03/22/25 08:04
Calcium 8.4 mg/dl (8.4-10.2) 03/22/25 08:04
Ihl-S-Mstdxawrkxs Pept 4770 pg/ml 03/17/25 21:17
Albumin 4.1 g/dl (3.5-5.0) 03/22/25 08:04
Physical Exam
-
Vital Signs:
Vital Signs
Temp Pulse Resp BP Pulse Ox
97.4 F 74 18 161/82 98
03/22/25 11:16 03/22/25 11:16 03/22/25 11:16 03/22/25 11:16 03/22/25 11:16
Cardiovascular:: Regular rate and rhythm
Respiratory:: Bilateral: CTA
Lung Excursion:: Normal
Abdomen:: Nontender and Soft
Bowel Sounds:: Normal
Extremity Edema:: +1: Bilateral:
== END 2025-03-22 13:17 | disposition home or self-care (01) | DRG 291 ==
LOC: 4 WEST ACU 23:44
PROVIDERS: Clinical Nurse Specialist Family Health; ADMITTING PHYSICIAN Hospitalist; ATTENDING PHYSICIAN Internal Medicine; CONSULT PHYSICIAN Internal Medicine Cardiovascular Disease; EMERGENCY PHYSICIAN Emergency Medicine; FAMILY PHYSICIAN Family Medicine; OTHER PHYSICIAN Specialist
DX: I13.0 Hypertensive heart and chronic kidney disease with heart failure and stage 1 through stage 4 chronic kidney disease, or unspecified chronic kidney disease (principal); I50.33 Acute on chronic diastolic (congestive) heart failure; N18.4 Chronic kidney disease, stage 4 (severe); N17.9 Acute kidney failure, unspecified; E85.4 Organ-limited amyloidosis; E78.00 Pure hypercholesterolemia, unspecified; E11.22 Type 2 diabetes mellitus with diabetic chronic kidney disease; E11.40 Type 2 diabetes mellitus with diabetic neuropathy, unspecified; E11.65 Type 2 diabetes mellitus with hyperglycemia; I45.10 Unspecified right bundle-branch block; E87.5 Hyperkalemia; I43 Cardiomyopathy in diseases classified elsewhere; E66.811 Obesity, class 1; R94.6 Abnormal results of thyroid function studies; I25.10 Atherosclerotic heart disease of native coronary artery without angina pectoris; D63.1 Anemia in chronic kidney disease; D50.9 Iron deficiency anemia, unspecified; I1A.0 Resistant hypertension; E11.319 Type 2 diabetes mellitus with unspecified diabetic retinopathy without macular edema; Z68.30 Body mass index [BMI] 30.0-30.9, adult; Z79.82 Long term (current) use of aspirin; Z79.4 Long term (current) use of insulin; Z86.73 Personal history of transient ischemic attack (TIA), and cerebral infarction without residual deficits; Z91.041 Radiographic dye allergy status
CPT/HCPCS: 71046; 80053; 81003; 81015; 82607; 82728; 82746; 82962; 83036; 83540; 83550; 83880; 84439; 84443; 84484; 85025; 85027; 93005; 93306; 93970; 97161; 99291; J2916

== ENCOUNTER → 2025-04-22 07:31 | Outpatient (REF) | payer BC, SELFPAY | LOC: HWRCS 07:31 | PROVIDERS: ATTENDING PHYSICIAN Nurse Practitioner; FAMILY PHYSICIAN Family Medicine | DX: R93.1 Abnormal findings on diagnostic imaging of heart and coronary circulation (principal); I50.32 Chronic diastolic (congestive) heart failure; N18.4 Chronic kidney disease, stage 4 (severe); I34.0 Nonrheumatic mitral (valve) insufficiency | CPT/HCPCS: 93306 ==

== ENCOUNTER → 2025-04-26 09:06 | Outpatient (REF) | payer BC, SELFPAY | LOC: RAD 09:06 | PROVIDERS: ATTENDING PHYSICIAN Nurse Practitioner; FAMILY PHYSICIAN Family Medicine | DX: R93.1 Abnormal findings on diagnostic imaging of heart and coronary circulation (principal); I50.32 Chronic diastolic (congestive) heart failure; N18.4 Chronic kidney disease, stage 4 (severe); I34.0 Nonrheumatic mitral (valve) insufficiency | CPT/HCPCS: 78803; A9538 ==